=== PATIENT | female | born 2000 | race Caucasian/White ===

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

== ENCOUNTER 2021-02-14 13:35 | Emergency (ER) | payer OTHER, SELFPAY ==
--- NOTE | ~2021-02-14 | US_ITS ---
EXAMINATION: US OB <=14 wk fetus w TV DATE: 02/14/2021 16:43 INDICATION: Pelvic pain. Vaginal bleeding in . TECHNIQUE: Real-time transabdominal and transvaginal pelvic ultrasound was performed. COMPARISON: None. FINDINGS: TRANSABDOMINAL ULTRASOUND: The uterus measures 8.6 x 4.8 x 4.3 cm. TRANSVAGINAL ULTRASOUND: There is an intrauterine gestational sac. A yolk sac is identified. The fet al crown rump length measures 5 mm, which correlates with an estimated gestational age of 6 weeks and 2 day(s) (+/-) 4 day(s). heart motion is identified measuring 122 beats per minute (bpm) by M- mode Doppler. There is a small subchorionic hematoma measuring 1.3 x 1.6 x 0.7 cm. The right ovary me asures 3.0 x 1.3 x 1.6 cm. The left ovary measures 3.7 x 2.7 x 2.1 cm. There is normal vascular flow in the ovaries. There is no free fluid in the pelvis. IMPRESSION: 1. Single living intrauterine gestation with estimated date of delivery of 10/08/2021. 2. Small subchorionic hematoma. Reviewed, dictated and finalized at location A. EWATER PROJECT MANAGER IMPRESSION: 1. Single living intrauterine gestation with estimated date of delivery of 09/11. 2. Small subchorionic hematoma.
[2021-02-14 13:37] VITALS: BP 112/56; PULSE 67; RESP 16; TEMP 36.3; O2SAT 100
[2021-02-14 14:20] LABS: Basophils Absolute Auto 0.1 K/mm3 (0.0-0.1); Basophils Percent Auto 0.7 % (0.2-1.2); Eosinophils Absolute Auto 0.1 K/mm3 (0-0.3); Eosinophils Percent Auto 0.7 % (0-4.4); Hematocrit 38.7 % (37.0-47.0); Hemoglobin 13.4 g/dL (12.0-15.0); Immature Granulocyte Absolute 0.03 K/mm3 (0.00-0.031); Immature Granulocyte Percent A 0.3 % (0-0.5); Lymphocytes Absolute Auto 2.19 K/mm3 (0.9-3.2); Lymphocytes Percent Auto 21.4 % (18.3-44.2); Mean Corpuscular HGB Conc 34.6 g/dl (32-36); Mean Corpuscular Hemoglobin 30.8 pg (26-34); Mean Platelet Volume 9.4 fl (7.4-10.4); Monocytes Absolute Auto 0.5 K/mm3 (0.1-0.6); Monocytes Percent Auto 4.9 % (2.6-8.5); Neutrophils Absolute Auto 7.4 K/mm3 (1.3-6.7); Platelet Count Result 287 k/mm3 (150-375); Red Blood Count 4.35 M/mm3 (4.2-5.4); Red Cell Distribution Width 11.9 % (11.5-14.5); White Blood Count 10.3 K/mm3 (4.5-10.0)
[2021-02-14 14:30] LABS: Add Urine Microscopic? YES; Amorphous Sediment Urine Few; Appearance Urine Cloudy (Clear); Bilirubin Urine Negative (Negative); Blood Urine 1+ (Negative); Budding Yeast Urine Present /hpf; Color Urine Amber (Yellow); Glucose Urine UA Negative (Negative); Ketones Urine Negative (Negative); Leukocyte Esterase Ur Negative LEU/UL (Negative); Mucus Urine Few /lpf; Nitrate Urine Negative (Negative); Protein Urine 1+ mg/dL (Negative); Specific Grav Ur 1.017 (1.001-1.035); Squamous Epithelial Cell Urine Many /hpf (Few)
[2021-02-14 14:34] LABS: Alanine Aminotransferase 13 U/L (4-35); Albumin Level 4.4 g/dL (3.5-5.1); Alkaline Phosphatase 59 U/L (38-126); Anion Gap 6 mmol/L (8-16); Aspartate Amino Transferase 23 U/L (14-36); Blood Urea Nitrogen 8 mg/dL (7-17); Calcium 9.1 mg/dL (8.4-10.2); Carbon Dioxide 27 mmol/L (22-30); Chloride 102 mmol/L (98-107); Estimated CRCL calculation 106 ml/min; Estimated Glomerular Filt Rate > 60; Glucose 98 mg/dL (65-110); Lipase 51 U/L (23-300); Potassium 4.2 mmol/L (3.4-5.0); Sodium 135 mmol/L (137-145)
--- NOTE | 2021-02-14 15:06 | ED.GENADULT ---
HPI - General Adult General Chief complaint: Nausea/Vomiting/Diarrhea Stated complaint: poss kidney infection Time Seen by Provider: 02/14/21 14:16 Source: patient Mode of arrival: ambulatory Limitations: no limitations History of Present Illness HPI narrative: Patient presents for evaluation of abdominal pain and vaginal bleeding. She indicates she is experienced vaginal bleeding for approximately 1.5 weeks. She previously had an IUD, but that was removed about two months ago at [facility] [place]. She states she had a normal period about one month ago. At the time she started bleeding 1.5 weeks ago, she was going through four tampons per day. She is now going through about three panty liners per day. She states six days ago she began experiencing urinary frequency, nausea, dry heaves and abdominal cramping. Five days ago she developed fever and chills. She went to [facility] four days ago and was diagnosed with urinary tract infection. She was given scripts for Macrobid and Pyridium. She has been attempting to take these medications but states that she cannot keep anything down. On arrival here in the ER today, prior to time of my evaluation, she had a bedside test which was positive. She is unsure whether a test was performed at [facility] urgent [facility]. No previous pregnancies. She has two male sex partners and does not believe either have symptoms consistent with STI. Related Data Allergies Allergy/AdvReac Type Severity Reaction Status Date / Time No Known Allergies Allergy Verified 04/16/20 15:42 Review of Systems Review of Systems: CONSTITUTIONAL: Reports fever and chills EYES: Denies visual changes, redness, or discharge. ENT: Denies rhinorrhea, congestion, sore throat, or otalgia. CARDIOVASCULAR: Denies chest pain, palpitations, or edema. RESPIRATORY: Denies cough or dyspnea. GASTROINTESTINAL: Reports abdominal pain, nausea, dry heaves and one episode of vomiting GENITOURINARY: Reports urinary frequency. Reports vaginal bleeding SKIN: Denies rash or itching. MUSCULOSKELETAL: Denies back pain, joint pain, or myalgia. NEUROLOGIC: Denies headache, numbness, dizziness, or weakness. PSYCHIATRIC: Denies anxiety or depression. [facility] Past Medical History Medical History Tympanic membrane disorder Surgical History Surgical History No pertinent past surgical history No significant past surgical history Family History Family History Mother No significant family history Social History Social History Smoking status: Former smoker Tobacco type: e-cigarettes/vaping Alcohol intake: former Substance use: current Substance use type: marijuana Living arrangements: with family Gender identity (if verbalized by the patient): Female Sexual Orientation (if Verbalized by the Patient): Straight or Heterosexual Spiritual care concerns: No Exam Narrative: GENERAL: Well-appearing, well-nourished, and in no acute distress. HEAD: Normocephalic, atraumatic. EYES: PERRLA and EOMI. ENT: Nares clear, no rhinorrhea or epistaxis. Mucous membranes moist. Oropharynx without tonsillar hypertrophy exudate or other lesions. Bilateral TMs pearly duran nonbulging NECK: Supple. No adenopathy or masses. No carotid bruits or JVD CHEST: Clear to auscultation. No respiratory distress. No wheezes rales or rhonchi HEART: Regular rate and rhythm. No murmur heard. Normal peripheral pulses. ABDOMEN: Soft, tenderness in suprapubic region without rebound or guarding. Abdomen is nondistended, normal active bowel sounds. GENITAL: No external genital lesions. No adnexal tenderness. There is small amount of mucus consistent pink drainage in vaginal vault. Cervical os deneen
[2021-02-14] MEDS: ONDANSETRON INJ 4 MG/2 ML VIAL IV PUSH (15:19)
[2021-02-14] MEDS: LACTATED RINGERS 1,000 ML 999 ML IV CONT (15:20)
== END 2021-02-14 18:07 | disposition home or self-care (01) ==
PROVIDERS: Family Medicine; Emergency Provider Nurse Practitioner; PCP Pediatrics
DX: O20.0 Threatened abortion (principal); Z3A.01 Less than 8 weeks gestation of pregnancy; O21.0 Mild hyperemesis gravidarum
CPT/HCPCS: 36415; 76801; 76817; 80053; 81001; 81025; 83690; 84702; 85025; 86900; 86901; 87070; 87077; 87491; 87591; 87808; 96361; 96374; 99284; J2405; J7120

== ENCOUNTER 2022-07-25 16:23 | Outpatient (CLI) | payer OTHER, SELFPAY ==
[2022-07-25 16:34] LABS: Basophils Absolute Auto 0.1 K/mm3 (0.0-0.1); Basophils Percent Auto 0.9 % (0.2-1.2); Eosinophils Absolute Auto 0.1 K/mm3 (0-0.3); Eosinophils Percent Auto 1.8 % (0-4.4); Hematocrit 36.1 % (37.0-47.0); Hemoglobin 12.4 g/dL (12.0-15.0); Lymphocytes Absolute Auto 2.25 K/mm3 (0.9-3.2); Lymphocytes Percent Auto 34.4 % (18.3-44.2); Mean Corpuscular HGB Conc 34.3 g/dl (32-36); Mean Corpuscular Hemoglobin 30.5 pg (26-34); Mean Corpuscular Volume 88.7 fl (80-100); Mean Platelet Volume 9.2 fl (7.4-10.4); Monocytes Absolute Auto 0.4 K/mm3 (0.1-0.6); Neutrophils Absolute Auto 3.7 K/mm3 (1.3-6.7); Neutrophils Percent Auto 56.9 % (45.5-73.1); Platelet Count Result 235 k/mm3 (150-375); Red Blood Count 4.07 M/mm3 (4.2-5.4); Red Cell Distribution Width 12.4 % (11.5-14.5); White Blood Count 6.6 K/mm3 (4.5-10.0)
[2022-07-25 16:45] LABS: Alanine Aminotransferase 12 U/L (6-35); Albumin Level 4.5 g/dL (3.5-5.1); Alkaline Phosphatase 48 U/L (38-126); Anion Gap 6 mmol/L (8-16); Aspartate Amino Transferase 21 U/L (14-36); Bilirubin,Total 0.7 mg/dL (0.2-1.3); Blood Urea Nitrogen 8 mg/dL (7-17); Calcium 8.6 mg/dL (8.4-10.2); Carbon Dioxide 26 mmol/L (22-30); Chloride 106 mmol/L (98-107); Estimated Glomerular Filt Rate > 60; Glucose 97 mg/dL (65-110); Potassium 4.1 mmol/L (3.4-5.0); Sodium 138 mmol/L (137-145)
== END 2022-07-25 16:24 | disposition home or self-care (01) ==
LOC: ANHLAB 16:24
PROVIDERS: PCP Family Medicine; Visit Provider Physician Assistant
DX: N92.1 Excessive and frequent menstruation with irregular cycle (principal)
CPT/HCPCS: 36415; 80053; 85025

== ENCOUNTER 2023-02-11 17:20 | Emergency (ER) | payer OTHER, SELFPAY ==
[2023-02-11 17:36] VITALS: BP 107/74; PULSE 82; RESP 16; TEMP 37; O2SAT 100
--- NOTE | 2023-02-11 17:41 | ED.FEMALEGU ---
HPI - Female Genitourinary General Chief complaint: Urogenital-Female Stated complaint: Eczema;Std test Time Seen by Provider: 02/11/23 17:41 Source: patient, RN notes reviewed and old records reviewed Mode of arrival: ambulatory Limitations: no limitations History of Present Illness HPI Narrative: 23 year old female presents to [facility] care with complaints of irritated rash to her bilateral axilla for 1 week duration. Patient reports that she quit using deodorant and started putting lotion to her axilla with no improvement.Patient denies any new soaps, laundry products, deodorants, no contact with anyone with known rashes. Patient also states that she has had abnormal bleeding for 2 weeks reports that menses are irregular and is not on any control pills because they mess with her mental health. Patient reports that she did home test that was negative. Patient denies any episodes of vaginal discharge and states that she wants STD testing done also today. MD elicited complaint: UTI Onset (ago): week(s) (2 weeks with menorrhagia) Vaginal discharge: none Vaginal bleeding: moderate and bright red Sexual activity: Yes Patient : No Related Data Allergies Allergy/AdvReac Type Severity Reaction Status Date / Time No Known Allergies Allergy Verified 01/27/23 15:54 Review of Systems Review of Systems: CONSTITUTIONAL: Denies fever, chills, or sweats. CARDIOVASCULAR: Denies chest pain, palpitations, or edema. RESPIRATORY: Denies cough or dyspnea. GASTROINTESTINAL: Denies abdominal pain, nausea, vomiting, or diarrhea. GENITOURINARY: Reports no dysuria, frequency, urgency. Denies flank pain, has had 2 weeks of menorrhagia,wants STD testing denies any STD symptoms. SKIN: Reports rash with irritation to skin bilateral axilla for one week duration. MUSCULOSKELETAL: Denies back pain or myalgia. Denies CVA tenderness NEUROLOGIC: Denies headache All systems reviewed & are unremarkable except as noted in HPI and below PMFSH Past Medical History Medical History (Updated 02/13/23 @ 12:46 by Anna Jauregui NP) Constipation by delayed colonic transit Contraception management Encounter for wellness examination Tympanic membrane disorder Surgical History Surgical History No pertinent past surgical history No significant past surgical history Family History Family History Mother No significant family history Thyroid disease Grandparent Breast cancer, Onset Age: 60 Social History Social History (Updated 01/27/23 @ 15:56 by Michelle Lawler) Social History: Single Smoking status: Smoker, status unknown (vaping) Tobacco type: e-cigarettes/vaping Additional smoking assessment comments: Pt has been vaping for 4 years. Alcohol intake: former Substance use: current Substance use type: marijuana Lack of Transportation: No Lack of Food: Never True Current Housing: I Have Housing Concerned About Future Housing: No Difficulty Paying Gas/Electric Bills: No Difficulty Paying for Meds: No Currently Unemployed: No Education: High School Diploma/GED Difficulty w/ Childcare or Family Care: No Living arrangements: with family Occupation/Education: occupation Gender identity (if verbalized by the patient): Female Sexual Orientation (if Verbalized by the Patient): Straight or Heterosexual Spiritual care concerns: No Comments AT TIME OF SIGNATURE, AGREE WITH NURSING PAST MEDICAL, SURGICAL, SOCIAL AND FAMILY HISTORY. THERE IS NO RELEVANT FAMILY HISTORY PERTINENT TO THE PRESENTING COMPLAINT Exam Narrative: GENERAL: Well-appearing, well-nourished, and in no acute distress. HEAD: Normocephalic, atraumatic. NECK: Supple.no lymphadenopathy CHEST: Clear to auscultation. No respiratory distress.SAO2 100% on room air HEART: Regular rate and rhythm. No murmur heard. Normal rupa
[2023-02-11 20:22] LABS: Trichomonas Vag PCR NOT DETECTED (NOT DETECTE)
[2023-02-11 20:48] LABS: Chlamydia trachomatis NOT DETECTED (NOT DETECTE); Neisseria gonorrhoeae PCR NOT DETECTED (NOT DETECTE)
== END 2023-02-11 18:15 | disposition home or self-care (01) ==
PROVIDERS: Emergency Provider Registered Nurse; PCP Family Medicine
DX: Z11.3 Encounter for screening for infections with a predominantly sexual mode of transmission (principal); L30.9 Dermatitis, unspecified; N92.1 Excessive and frequent menstruation with irregular cycle; F17.290 Nicotine dependence, other tobacco product, uncomplicated; F12.90 Cannabis use, unspecified, uncomplicated
CPT/HCPCS: 81003; 81025; 87491; 87591; 87661; 99213; G0463

== ENCOUNTER 2023-02-20 10:53 | Emergency (ER) | payer OTHER, SELFPAY ==
[2023-02-20 10:56] VITALS: BP 99/53; PULSE 72; RESP 18; TEMP 36.5; O2SAT 100
--- NOTE | 2023-02-20 11:43 | ED.WOUNDLAC ---
HPI - Wound/Laceration General Chief Complaint: Wound/Laceration Stated Complaint: hand lac Time Seen by Provider: 02/20/23 11:03 Source: patient Mode of arrival: ambulatory Limitations: no limitations History of Present Illness HPI narrative: This is a 23 year old female that presents to the ER for laceration to the left hand sustained just prior to arrival. Reports she accidentally cut herself with a paper box maker. Reports bleeding and pain to the area. Reports after this happened she started to feel very sweaty and nauseous. She put her head down and passed out. Reports history of similar events when attempting to give blood. Denies chest pain, shortness of breath or palpitations. Related Data Allergies Allergy/AdvReac Type Severity Reaction Status Date / Time No Known Allergies Allergy Verified 02/20/23 10:57 Review of Systems Review of Systems: CONSTITUTIONAL: Denies fever CARDIOVASCULAR: Denies chest pain, palpitations RESPIRATORY: Denies dyspnea. SKIN: Reports laceration GASTROINTESTINAL: Reports nausea All systems reviewed & are unremarkable except as noted in HPI and below PMFSH Past Medical History Medical History (Updated 02/20/23 @ 11:57 by Bebe Echavarria PA-C) Constipation by delayed colonic transit Contraception management Encounter for wellness examination Tympanic membrane disorder Surgical History Surgical History No pertinent past surgical history No significant past surgical history Family History Family History Mother No significant family history Thyroid disease Grandparent Breast cancer, Onset Age: 60 Social History Social History (Updated 01/27/23 @ 15:56 by Michelle Lawler) Social History: Single Smoking status: Smoker, status unknown (vaping) Tobacco type: e-cigarettes/vaping Additional smoking assessment comments: Pt has been vaping for 4 years. Alcohol intake: former Substance use: current Substance use type: marijuana Lack of Transportation: No Lack of Food: Never True Current Housing: I Have Housing Concerned About Future Housing: No Difficulty Paying Gas/Electric Bills: No Difficulty Paying for Meds: No Currently Unemployed: No Education: High School Diploma/GED Difficulty w/ Childcare or Family Care: No Living arrangements: with family Occupation/Education: occupation Gender identity (if verbalized by the patient): Female Sexual Orientation (if Verbalized by the Patient): Straight or Heterosexual Spiritual care concerns: No Exam Narrative: GENERAL: Well-appearing, well-nourished, and in no acute distress. HEAD: Normocephalic, atraumatic. EYES: EOMI. CHEST: Clear to auscultation. No respiratory distress. No wheezes rales or rhonchi HEART: Regular rate and rhythm. No murmur heard. Normal peripheral pulses. EXTREMITIES: Normal range of motion. No edema. 1cm linear laceration into subcutaneous tissue to the left hand between the 1st and 2nd fingers SKIN: Warm, dry, no rash. NEURO: No focal deficits. Alert and oriented x3. PSYCH: Normal mood and affect Course Course Emergency Course: Patient and family educated on wound care and recommendation for workup for her syncopal episode. They refuse at this time Vital Signs Vital signs: Vital Signs Temperature 97.7 F 02/20/23 10:56 Pulse Rate 72 02/20/23 10:56 Respiratory Rate 18 02/20/23 10:56 Blood Pressure 99/53 L 02/20/23 10:56 Pulse Oximetry 100 02/20/23 10:56 Temperature 97.7 F 02/20/23 10:56 Pulse Rate 70 02/20/23 11:54 Respiratory Rate 18 02/20/23 10:56 Blood Pressure 95/57 L 02/20/23 11:54 Pulse Oximetry 100 02/20/23 10:56 Procedures Laceration Laceration 1: Date: 02/20/23 Time: 11:49 Site: hand Side (If applicable): left Size (cm): 1 Description: linear Pre-repa
[2023-02-20] MEDS: TETANUS,DIPHTHERIA,AC PERTUSSIS ADULT (0.5 ML) BOOSTRIX IM (11:47)
[2023-02-20 11:52] VITALS: BP 96/57; PULSE 60
[2023-02-20 11:53] VITALS: BP 95/59; PULSE 60
[2023-02-20 11:54] VITALS: BP 95/57; PULSE 70
--- NOTE | 2023-02-20 11:57 | PC.NURSE ---
pt has a syncopal workup ordered because when they got a laceration they fainted from seeing blood. pt states they do not want to stay for the full work up and just want to treat the laceration and do orthostatic bp's. educated pt and mom on use of the work up and they decided to not do it.
== END 2023-02-20 12:09 | disposition home or self-care (01) ==
PROVIDERS: Emergency Provider Physician Assistant; PCP Family Medicine
DX: S61.412A Laceration without foreign body of left hand, initial encounter (principal); R55 Syncope and collapse; F17.290 Nicotine dependence, other tobacco product, uncomplicated; Z23 Encounter for immunization; W27.8XXA Contact with other nonpowered hand tool, initial encounter
CPT/HCPCS: 90471; 90715; 99282

== ENCOUNTER 2023-04-19 11:38 | Emergency (ER) | payer OTHER, SELFPAY ==
[2023-04-19 11:44] VITALS: BP 97/63; PULSE 81; RESP 16; TEMP 36.9; O2SAT 100
--- NOTE | 2023-04-19 12:17 | ED.EXTPRO ---
HPI - Extremity Problem General Chief complaint: Extremity Problem,Nontraumatic Stated complaint: L FOOT PAIN Time Seen by Provider: 04/19/23 12:15 Source: patient and RN notes reviewed Mode of arrival: ambulatory Limitations: no limitations History of Present Illness HPI Narrative: 23-year-old female presents concern for left foot pain for 3 weeks. She reports no injury or trauma. She reports symptoms have worsened slightly over the last week. She reports minimal pain at rest, worsening pain with weight-bearing flexing the foot. She denies intervention. MD Complaint: extremity pain Related Data Home Medications Medication Instructions Recorded Confirmed No Home Medications 04/19/23 04/19/23 Allergies Allergy/AdvReac Type Severity Reaction Status Date / Time No Known Allergies Allergy Verified 04/19/23 12:03 Review of Systems Review of Systems: CONSTITUTIONAL: Denies malaise, chills, sweats, or fever. CARDIOVASCULAR: Denies chest pain, palpitations, or edema. RESPIRATORY: Denies cough or dyspnea. SKIN: Denies rash or itching, bruising, redness, swelling. MUSCULOSKELETAL: Reports left foot pain NEUROLOGIC: Denies numbness, weakness All systems reviewed & are unremarkable except as noted in HPI and below PMFSH Past Medical History Medical History (Updated 04/19/23 @ 12:33 by Saida Card NP) Constipation by delayed colonic transit Contraception management Encounter for wellness examination Tympanic membrane disorder Surgical History Surgical History No pertinent past surgical history No significant past surgical history Family History Family History Mother No significant family history Thyroid disease Grandparent Breast cancer, Onset Age: 60 Social History Social History (Updated 01/27/23 @ 15:56 by Michelle Lawler) Social History: Single Smoking status: Smoker, status unknown (vaping) Tobacco type: e-cigarettes/vaping Additional smoking assessment comments: Pt has been vaping for 4 years. Alcohol intake: former Substance use: current Substance use type: marijuana Lack of Transportation: No Lack of Food: Never True Current Housing: I Have Housing Concerned About Future Housing: No Difficulty Paying Gas/Electric Bills: No Difficulty Paying for Meds: No Currently Unemployed: No Education: High School Diploma/GED Difficulty w/ Childcare or Family Care: No Living arrangements: with family Occupation/Education: occupation Gender identity (if verbalized by the patient): Female Sexual Orientation (if Verbalized by the Patient): Straight or Heterosexual Spiritual care concerns: No Comments At time of signature, agree with nursing past medical, surgical, social and family history. There is no relevant family history pertinent to the presenting complaint Exam Narrative: GENERAL: Well-appearing, well-nourished, and in no acute distress. HEAD: Normocephalic, atraumatic. EYES: PERRLA, conjunctivae clear NECK: Supple. CHEST: Speaks in full sentences. No respiratory distress. HEART: Regular rate and rhythm. Normal and equal peripheral pulses. EXTREMITIES: Left ankle, foot, digits have grossly normal strength and sensation, normal range of motion. No edema or ecchymosis. 5/5 strength with ankle in digit flexion and extension. Normal sensation with sensitivity to light touch and pain. No point tenderness, dorsal proximal tenderness. No open wounds, no skin tenting, no devitalized tissue or atrophy, no trophic changes, no obvious deformity, alignment normal, nearby joints and structures intact. Distal pulses palpable and equal bilaterally, skin warm, dry, pink. Capillary refill less than 3 seconds. SKIN: Warm, dry, no rash. NEURO: Alert and oriented x3. PSYCH: Normal mood and affect Course Course Emergency Course: Patient is aware of diag
== END 2023-04-19 12:38 | disposition home or self-care (01) ==
PROVIDERS: Emergency Provider Nurse Practitioner; PCP Family Medicine
DX: M77.9 Enthesopathy, unspecified (principal); F17.290 Nicotine dependence, other tobacco product, uncomplicated
CPT/HCPCS: 99212; G0463

== ENCOUNTER 2024-07-20 12:54 | Observation (INO) | payer OTHER, SELFPAY ==
[2024-07-20] VITALS (9 sets, daily range): BP systolic 99–118; BP diastolic 58–73; PULSE 66–93; RESP 10–20; TEMP 36.3–36.7; O2SAT 99–100; BMI 22.1
--- NOTE | ~2024-07-20 | US_ITS ---
US pelvic complete Ordering provider: Orin England PA-C History: . 05/25, vaginal bleeding, retained products . Comparison: None. Technique: Transabdominal ultrasound of the pelvis (Doppler ultrasound interrogation techniques used as needed for this exam.) FINDINGS: CERVIX: Normal. UTERUS: Measures 9x 4x 4.6 cm in length which is within normal limits and is anteverted. No myometri al masses. ENDOMETRIUM: Normal in thickness measuring 14.2 mm. Heterogenous endometrium is noted with some vascu larity. No endometrial masses, cysts or fluid. CUL DE SAC: No free fluid. RIGHT OVARY: Normal in size measuring 3.1x 2.1x 2 cm. Normal echotexture. Doppler vascular flow prese nt. LEFT OVARY: Normal in size measuring 2.7x 3.4x 1.9 cm. Normal echotexture. Doppler vascular flow pres ent. ADNEXA: Normal. No mass. IMPRESSION: Thickened heterogenous endometrium with minimal vascularity which is most likely indicate retained pr oducts. Follow-up and clinical correlation advised.Otherwise, normal pelvic ultrasound. Reviewed, dictated and finalized at location A. IMPRESSION: Thickened heterogenous endometrium with minimal vascularity which is most likel y indicate retained products. Follow-up and clinical correlation advised.Otherw ise, normal pelvic ultrasound.
--- OUTSIDE RECORDS SUMMARY | 2024-07-20 12:56 | XMS_ITS | Data Portability ---
Author Organization [facility] [place] Address [address] [place] [address] [place] [address] Assessment No assessment recorded. Plan of Treatment Reminders Order Date Submit Date Provider Last Modified By Organization Details Last Modified Time Details Appointments None recorded. Lab culture, urine 2024 025 [facility] (Lab), [address], [place], [address], 5 03:02:06 urinalysis, dipstick 2024 025 [email or web address] [place], [address], [address], [place], [address], 5 18:07:25 unlisted lab - [facility], LAVON 2024 025 [facility] (Lab), [address], [place], [address], 5 03:02:05 dhea-sulfat e, serum 2023 024 [facility] (Lab), [address] [place], [address], 4 21:50:56 hormone panel, serum or plasma 2023 024 [facility] (Lab), [address] [place], [address], 4 21:50:58 progesteron e, serum 2023 [facility] (Lab), [address] [place], [address], 4 21:50:57 prolactin, serum 2023 [facility] (Lab), [address], [place], [address], 4 21:50:57 shbg (sex hormone-bin ding globulin), serum 2023 [facility] (Lab), [address], [place], [address], 4 21:50:58 TSH, serum or plasma 2023 [facility] (Lab), [address], [place], [address], 4 21:50:57 testosteron e free/testos terone total, ratio, serum 2023 [facility] (Lab), [address], [place], [address], 4 21:50:58 HbA1c (hemoglobin A1c), blood 2023 [facility] (Lab), [address], [place], [address], 4 21:50:58 Referral None recorded. Procedures None recorded. Surgeries None recorded. Imaging [email or web address] [address], [address], [place], [address], 14:27:27 US, transvagina l 2023 [email or web address] [address], [address], [place], [address], 4 14:27:27 Medication Orders estradiol 2 mg tablet 2023 025 [id number], [address] , [place], [place], [id number], 17:56:10 Patient TargetsNo targets recorded. Patient InstructionsNo instructions recorded. Reason for Referral None Reported. Results Created Date Observation Date Name Description Value Unit Range Abnormal Flag Note LastModifiedBy Organization Detail LastModifiedTime 02/02/20 24 02/02/2024 DHEA SULFA TE DHEA-sulfate 173 ug/dL Femal e Range s Age(y ) Range (ug/d L) 10-15 34-28 0 15-20 65-36 8 20-25 148-4 07 25-35 99-34 0 35-45 61-33 7 45-55 35-25 6 55-65 19-20 5 65-75 9-246 > 75 12-15 4 Not Available [facility] (Lab) [address] [facility], [place], [address], 02/07/2024 21:50:56 02/02/20 24 02/02/2024 TSH, REFLE X FREE T4 TSH 0.97 uIU/m L 0.30-5 .33 Not Available [facility] (Lab) [address] , [place], [address], 02/07/2024 21:50:57 02/02/20 24 02/02/2024 PROLA CTIN prolactin, total 14.20 NG/mL 4.79-2 3.30 This assay was perfo rmed using [employer] ratio n reage nts and test kits. Value s obtai aime with other assay metho ds or kits canno t be used inter barreto eably . Not Available [facility] (Lab) [address] , [place], [address], 02/07/2024 21:50:57 02/02/20 24 02/02/2024 PROGE STERO NE progesterone 12.80 NG/mL This assay was perfo rmed using [employer] reage nts and test kits. Value s obtai aime with other assay metho ds or kits canno t be used inter [facility] . Femal e Proge stero ne Range s: Folli cular phase 0.06- 0.89 ng/mL Ovula tion phase 0.12- 12.00 ng/mL Lutea l phase 1.83- 23.90 ng/mL Postm enopa usal <0.05 -0.13 ng/mL Healt hy Pregn ant Women 1st Trime ster 11.0- 44.30 2nd Trime ster 25.40 -83.3 0 3rd Trime ster 58.70 -214. 00 Not Available [facility] (Lab) [address] [place], [address], 02/07/2024 21:50:57 02/02/20 24 02/02/2024 FSH, LH, ESTRA DIOL estradiol 101.0 pg/mL This assay was perfo rmed using [employer] reage nts and test kits. Value s obtai aime with other assay metho ds or kits canno t be used inter [facility] . Femal e Estra diol Range s: Folli cular phase 12.4- 233 pg/mL Ovula tion phase 41.0- 398 pg/mL Lutea l phase 22.3- 341 pg/mL Postm enopa usal <5-13 8 pg/mL Healt hy Pregn ant Women 1st Trime ster 154-3 243 pg/mL 2nd Trime ster 1561- 64265 pg/mL 3rd Trime ster 8525- >3000 0 pg/mL Not Available [facility] (Lab) [address] [place], [address], 02/07/2024 21:50:58 02/02/20 24 02/02/2024 FSH, LH, ESTRA DIOL FSH 4.0 mIU/m L This assay was perfo rmed using [employer] n reage nts and test kits. Value s obtai aime with other assay metho ds or kits canno t be used inter [facility] . Femal es Folli cular : 3.5-1 2.5 mIU/m L Ovula tion: 4.7-2 1.5 mIU/m L Lutea l: 1.7-7 .7 mIU/m L Postm enopa use: 25.8- 134.8 mIU/m L Not Available [facility] (Lab) [address] [facility], [place], [address], 02/07/2024 21:50:58 02/02/20 24 02/02/2024 FSH, LH, ESTRA DIOL LH 5.9 mIU/m L This assay was perfo rmed using [employer] n reage nts and test kits. Value s obtai aime with other assay metho ds or kits canno t be used inter [facility] . Femal es Mid-F ollic ular: 2.4-1 2.6 mIU/m L Mid-C ycle: 14.0- 95.6 mIU/m L Mid-L uteal : 1.0-1 1.4 mIU/m L Postm enopa use: 7.7-5 8.5 mIU/m L Not Available [facility] (Lab) [address] [facility], [place], [address], 02/07/2024 21:50:58 02/02/20 24 02/02/2024 HUMAN SEX HORMO NE VIVEK NG GLOBU JOÃO sex hormone binding globulin 70.3 nmole s/L 18.2-1 35.5 Not Available [facility] (Lab) [address] [place], [address], 02/07/2024 21:50:58 02/02/20 24 02/02/2024 HEMOG LOBIN A1C hemoglobin A1C 5.1 % 0-5.6 The Ameri can Diabe artis Assoc iatio n recom mends that a prima ry goal of therkylah forbes be a HBA1C of < 7% and that physi ciakelly forbes reeva luate the treat ment regim en in patie nts with HBA1C value s consi stent ly > 8%. <5.7% Alethea l 5.7 - 6.4% Incre ased risk for diabe artis >=6.5 % Diagn ostic of diabe artis <7.0% Goal of thera py >8.0% Actangelica reynolds sted Not Available [facility] (Lab) [address] [facility], [place], [address], 02/07/2024 21:50:58 02/02/20 24 02/02/2024 TESTO STERO NE, FREE( DIALY SIS) AND TOTAL (LC/M S/MS) testosterone , total 17 NG/dL 2-45 For addit ional infor hermila seymour e refer to http: //[facility] haile helton.que stdia gnost ics.c om/fa q/ Total Testo stero neLCM SMSFA Q165 (This link is being provi ded for infor gary kinsey/ educa lupe l purpo ses only. ) This test was devel oped and its murali tical perfo rmanc e salvador cteri stics have been deter mined by [facility] [facility] [facility]inder [facility], [place]. It has not been clear ed or appro cherry by the U.S. Food and Drug Admin istra tion. This assay has been valid ated pursu ant to the CLIA regul ation s and is used for clini sam purpo ses. Not Available [facility] (Lab) [address] [facility], [place], [address], 02/07/2024 21:50:58 02/02/20 24 02/02/2024 TESTO STERO NE, FREE( DIALY SIS) AND TOTAL (LC/M S/MS) testosterone , free 1.6 pg/mL 0.1-6. 4 This test was devel oped and its murali tical perfo rmanc e salvador cteri stics have been deter mined by [employer] Rajinder ls [facility], [place]. It has not been clear ed or appro cherry by the U.S. Food and Drug Admin istra tion. This assay has been valid ated pursu ant to the CLIA regul ation s and is used for clini sam purpo ses. Perfo rming Organ izati on Infor gary n: Site ID: [id number] Name: Francoise ramires Addre ss: [id number] [place], [place] Direc tor: Trell Brown MD PhD Not Available [facility] (Lab) [address] [facility], [place], [address], 02/07/2024 21:50:58 04/02/19 25 04/02/2024 WOMEN 'S HEALT H SWAB PLUS, LAVON bacterial vaginosis (bv), tma Positi ve negati ve abnormal Not Available [facility] (Lab) [address] [place], [address], 04/04/2024 03:02:05 04/02/19 25 04/02/2024 WOMEN 'S HEALT H SWAB PLUS, LAVON isha species, tma Positi ve negati ve abnormal Not Available [facility] (Lab) [address] [place], [address], 04/04/2024 03:02:05 04/02/19 25 04/02/2024 WOMEN 'S HEALT H SWAB PLUS, LAVON isha glabrata, tma Negati ve negati ve Not Available [facility] (Lab) [address] [place], [address], 04/04/2024 03:02:05 04/02/19 25 04/02/2024 WOMEN 'S HEALT H SWAB PLUS, LAVON trichomonas vaginalis, tma Negati ve negati ve Not Available [facility] (Lab) [address] [place], [address], 04/04/2024 03:02:05 04/02/19 25 04/02/2024 WOMEN 'S HEALT H SWAB PLUS, LAVON chlamydia trachomatis, PCR Negati ve negati ve Not Available [facility] (Lab) [address] [place], [address], 04/04/2024 03:02:05 04/02/19 25 04/02/2024 WOMEN 'S HEALT H SWAB PLUS, LAVON neisseria gonorrhoeae, PCR Negati ve negati ve Bacte rial vagin osis detec ts the follo wing bacte christiana assoc iated with bacte rial vagin osis (BV): Lacto bacil quinn (L. gasse ri, L. crisp atus and L. jense black), Gardn erell a vagin shirin, and Atopo bium vagin ae. A singl e quali tativ e resul t is repor julio base on instr ument softw are to deter mine BV posit quyen or negat quyen statu s. The [facility] speci es group tests for C. albic ans, C. tropi calis , C. parap miguel ángel is, C. dubli niens is. Testi ng is perfo rmed using the Trans cript ion Media julio Ampli ficat ion metho d. Tests for Kely da glabr anselmo, Trich omona s vagin sihrin, Chlam ydia trach omati s, and Neiss eria gonor rhoea e are also inclu ded in this panel . Not Available [facility] (Lab) [address] [facility], [place], [address], 04/04/2024 03:02:05 04/02/19 25 04/02/2024 CULTU RE: URINE result report SEE RESULT S BELOW Test: Cultu re: Urine Speci men Sourc e: Urine - Clean Catch Speci men Type: Urine Speci men Date: 2024 1713 Resul t Date: 2024 0158 Resul t Statu s: Final resul t Abnor mal: No Resul ting Lab: [facility] [address] [facility] [address] Tel: CULTU RE ----- ----- ----- --- Cultu re resul t (>=3 organ isms prese nt) indic ates possi ble conta minat ion. Repea t cultu re if sympt oms indic ate. Not Available [facility] (Lab) [address], [place], [address], 04/04/2024 03:02:06 04/02/19 25 04/02/2024 urina lysis , dipst ick Leukocytes - Not Available [facility] l[address], [place], [address], 04/02/2024 18:04:55 04/02/19 25 04/02/2024 urina lysis , dipst ick Nitrite - Not Available [facility] [address], [place], [address], 04/02/2024 18:04:55 04/02/19 25 04/02/2024 urina lysis , dipst ick Urobilinogen - Not Available [facility] ayleen [address], [place], [address], 04/02/2024 18:04:55 04/02/19 25 04/02/2024 urina lysis , dipst ick Protein trace Not Available [place] [address], [place], [address], 04/02/2024 18:04:55 04/02/19 25 04/02/2024 urina lysis , dipst ick pH 5 Not Available [place] [address], [place], [address], 04/02/2024 18:04:55 04/02/19 25 04/02/2024 urina lysis , dipst ick Specific [place] 1.020 Not Available [facility] chance [address], [place], [address], 04/02/2024 18:04:55 04/02/19 25 04/02/2024 urina lysis , dipst ick Ketone - Not Available [place] [address], [place], [address], 04/02/2024 18:04:55 04/02/19 25 04/02/2024 urina lysis , dipst ick Bilirubin - Not Available [facility] [address], [place], [address], 04/02/2024 18:04:55 04/02/19 25 04/02/2024 urina lysis , dipst ick Glucose - Not Available [place] [address], [place], [address], 04/02/2024 18:04:55 04/02/19 25 04/02/2024 urina lysis , dipst ick Appearance cloudy Not Available [facility] [address], [place], [address], 04/02/2024 18:04:55 04/02/19 25 04/02/2024 urina lysis , dipst ick Color yellow Not Available [place] [address], [place], [address], 04/02/2024 18:04:55 12/15/19 24 12/15/2023 US, pelvi s No observ ation record ed. [email or web address] [place] [address], [place], [address], 12/15/2023 12:34:22 12/15/1912/15/2023 US, trans vagin al No observ ation record ed. [email or web address] [place] [address], [place], [address], 12/15/2023 12:34:31 12/15/1912/15/2023 US, pelvi s No observ ation record ed. [email or web address] [address], [place], [address], 12/17/2023 23:27:48 05/21/1905/20/2024 US, obste tric, 1st trime ster No observ ation record ed. [address], [place], [address], 06/04/2024 13:56:04 Result Notes None recorded. Problems Name Problem SNOMED Code Status Onset Date Resolution Date Notes Provider Name and Address Organization Details Recorded Time Syphilis test finding 855513653 Completed 201707/31/2020 Encntr screen for infection s w sexl mode of transmiss ;Recorded Elsewhere : No Locati on: [facility] So urce: EHR Chron ic: N Practic e ID: 0001 Bill able Time: 03:00:00 PM [facility] 11:43:33 Clinical finding Completed 201507/31/2020 Presence of (intraute rine) contracep tive device;Re corded Elsewhere : No Locati on: [facility] So urce: EHR Chron ic: N Practic e ID: 0001 Bill able Time: 02:30:00 PM [facility] 11:41:[address] Concept Completed 201507/31/2020 Encntr for routine child health exam w/o abnormal findings; Recorded Elsewhere : No Locati on: [facility] So urce: EHR Chron ic: N Practic e ID: 0001 Bill able Time: 03:00:00 PM [facility] 11:43:25 Evaluati on finding Completed 201707/31/2020 Hematuria , unspecifi ed;Record ed Elsewhere : No Locati on: [facility] So urce: EHR Chron ic: N Practic e ID: 0001 Bill able Time: 03:00:00 PM [facility] 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 1 11:43:27 Insertio n of intraute rine contrace ptive device Completed 201503/25/2021 Encounter for insertion of intrauter ine contracep tive device;Re corded Elsewhere : No Locati on: [facility] So urce: EHR Chron ic: N Practic e ID: 0001 Bill able Time: 02:30:00 PM Charlotte Santos [facility] 2 13:13:59 Infectio n screenin g Completed 201707/31/2020 Encounter for screening for oth infec/par astc diseases; Recorded Elsewhere : No Locati on: [facility] So urce: EHR Chron ic: N Practic e ID: 0001 Bill able Time: 03:00:00 PM Charlotte Santos [facility] 1 11:43:16 Vaginola bial hernia Completed 201707/31/2020 Other specified noninflam matory disorders of vagina;Re corded Elsewhere : No Locati on: [facility] So urce: EHR Chron ic: N Practic e ID: 0001 Bill able Time: 03:00:00 PM Charlotte Santos [facility] 1 11:43:34 Pregnanc y test negative [id number] Completed 201507/31/2020 Encounter for test, result negative; Recorded Elsewhere : No Locati on: [facility] So urce: EHR Chron ic: N Practic e ID: 0001 Bill able Time: 03:00:00 PM Charlotte Santos [facility] 1 11:43:21 Surveill ance of contrace ption Completed 201507/31/2020 Encounter for surveilla nce of contracep tives, unspecifi ed;Record ed Elsewhere : No Locati on: [facility] So urce: EHR Chron ic: N Practic e ID: 0001 Bill able Time: 03:00:00 PM [facility] 1 11:43:29 Chlamydi al vulvovag initis [id number] Completed 201803/25/2021 Chlamydia l vulvovagi nitis;Rec orded Elsewhere : No Locati on: [facility] So urce: EHR Chron ic: N Practic e ID: 0001 Bill able Time: 02:30:00 PM [facility] 2 13:13:54 Blood leukocyt e number above referenc e range [id number] Completed 201707/31/2020 Elevated white blood cell count, unspecifi ed;Record ed Elsewhere : No Locati on: [facility] So urce: EHR Chron ic: N Practic e ID: 0001 Bill able Time: 03:00:00 PM [facility] [address] 11:41:[address] Concept Completed 201807/31/2020 Encntr for general adult medical exam w/o abnormal findings; Recorded Elsewhere : No Locati on: [facility] So urce: EHR Chron ic: N Practic e ID: 0001 Bill able Time: 02:30:00 PM [facility] 1 11:43:23 Contrace ptive sheath status [id number] Completed 201507/31/2020 IUD follow up;Record ed Elsewhere : No Locati on: [facility] So urce: EHR Chron ic: N Practic e ID: 0001 Bill able Time: 04:00:00 PM [facility] 1 11:41:36 Problem Notes None recorded. Procedures Surgical History Date Name Laterality Status Provider Name and Address Organization Details Recorded Time 02/21/20 24 Date of Last Pap Smear completed Nakia Woodland [facility] 06/12/2023 16:09:03 03/14/19 23 extraction of wisdom tooth completed DEMIKylah Gold [facility] 05/20/2024 16:14:00 04/08/19 22 IUD Insertion cancelled Charlotte Santos [facility] 04/07/2021 19:29:28 10/14/19 21 IUD Removal completed Joselyn Singh, [facility]- [address], [place], [address], [place] [facility] 10/13/2020 13:39:21 Imaging Results Imaging Date Name Status LastModified by Organization Details LastModified Time 12/15/2023 US, pelvis completed [email or web address] [place] [address], [place], [address], 12/15/2023 12:34:22 12/15/2023 US, transvaginal [email or web address] [address], [place], [address], 12/15/2023 12:34:31 12/15/2023 US, pelvis completed [email or web address] [address], [place], [address], 12/17/2023 23:27:48 05/20/2024 US, obstetric, 1st trimester completed [address], [place], [address], 06/04/2024 13:56:04 Procedure Notes None recorded. Medical Equipment None Reported. Allergies No known drug allergies Medications Name Sig Start Date Stop Date Status Note LastModified by Organization Details LastModified Time Mirena 21 mcg/24 hr (up to 8 years) 52 mg intrauter ine device Take by intraute rine route. 03/25 completed Not Available Not Available Not Available fluconazo le 150 mg tablet TAKE 1 TABLET BY MOUTH 1 TIME 05/20 completed Not Available Not Available Not Available hydrocodo ne 5 mg-acetam inophen 325 mg tablet TAKE 1 TABLET BY MOUTH EVERY 6 HOURS NEEDED 07/31 completed Not Available Not Available Not Available fluconazo le 200 mg tablet TAKE 1 TABLET BY MOUTH EVERY OTHER DAY FOR 3 DOSES 03/25 completed Not Available Not Available Not Available metronida zole 0.75 % (37.5 mg/5 gram) vaginal gel INSERT 1 APPLICAT ORFUL VAGINALL Y EVERY DAY FOR 5 DAYS 05/20 completed Not Available Not Available Not Available ondansetr on HCl 4 mg tablet TAKE 1 TABLET BY MOUTH EVERY 4 TO 6 HOURS NEEDED 05/03 completed Not Available Not Available Not Available metronida zole 500 mg tablet TAKE 1 TABLET BY MOUTH EVERY 12 HOURS FOR 7 DAYS 05/20 completed Not Available Not Available Not Available oxycodone -acetamin ophen 5 mg-325 mg tablet TAKE 1/2 TO 1 TABLET BY MOUTH EVERY 4-6 HOURS NEEDED . MAX OF 4 TABLETS PER DAY 05/03 completed Not Available Not Available Not Available alprazola m 0.5 mg tablet 05/03 completed Not Available Not Available Not Available phenazopy ridine 100 mg tablet TAKE 2 TABLETS BY MOUTH THREE TIMES DAILY FOR 2 DAYS 03/25 completed Not Available Not Available Not Available Nortrel 0.5/35 (28) 0.5 mg-35 mcg tablet TAKE 1 TABLET BY MOUTH EVERY DAY 02/01 completed Not Available Not Available Not Available nystatin- triamcino lone 100,000 unit/g-0. 1 % topical cream APPLY A LIGHT AMOUNT TO THE AFFECTED AREA ON SKIN TWICE DAILY 05/03 completed Not Available Not Available Not Available misoprost ol 100 mcg tablet INSERT 1 TABLET VAGINALL Y THE NIGHT PRIOR TO IUD INSERTIO N FOR ONE DOSE 05/03 completed Not Available Not Available Not Available estradiol 2 mg tablet Take 1 tablet every day by oral route for 14 days. 04/02 completed Not Available Not Available Not Available hydroxyzi ne HCl 25 mg tablet TAKE 1 TABLET BY MOUTH THREE TIMES DAILY NEEDED FOR ANXIETY 05/03 completed Not Available Not Available Not Available oxycodone -acetamin ophen 7.5 mg-325 mg tablet 05/03 completed Not Available Not Available Not Available methylpre dnisolone 4 mg tablets in a dose pack FOLLOW PACKAGE DIRECTIO NS 05/03 completed Not Available Not Available Not Available ondansetr on 4 mg disintegr ating tablet DISSOLVE 1 TABLET ON THE TONGUE EVERY 6 HOURS NEEDED FOR NAUSEA OR VOMITING 07/31 completed Not Available Not Available Not Available amoxicill in 875 mg-potass ium clavulana te 125 mg tablet TAKE 1 TABLET BY MOUTH TWICE DAILY WITH FOOD 05/03 completed Not Available Not Available Not Available Bactrim DS 800 mg-160 mg tablet take 1 tablet by oral route every 12 hours 11/15 completed Prescrib ed Elsewher e: No Locat ion: [facility] liu [facility] odify By: ibrahima mcmahan DateTime : 07/27/19 18 03:00:00 PM Not Available Not Available Not Available dextroamp hetamine- amphetami ne ER 15 mg 24hr capsule,e xtend release 07/31 completed Not Available Not Available Not Available azithromy yajaira 500 mg tablet TAKE 2 TABLETS BY MOUTH ONCE FOR 1 DOSE 07/31 completed Not Available Not Available Not Available nitrofura ntoin monohydra te/macroc rystals 100 mg capsule TAKE 1 CAPSULE BY MOUTH EVERY 12 HOURS FOR 7 DAYS 03/25 completed Not Available Not Available Not Available chlorhexi dine gluconate 0.12 % mouthwash 05/03 completed Not Available Not Available Not Available Se- 19 Chewable 29 mg iron-1 mg tablet 05/03 completed Not Available Not Available Not Available Lo Loestrin Fe 1 mg-10 mcg (24)/10 mcg (2) tablet Take 1 tablet every day by oral route for 90 days. 03/25 completed Lot#: [id number], Exp DEC 31 Not Available Not Available Not Available Nuvessa 1.3 % (65 mg/5 gram) vaginal gel insert 1 applicat orful by vaginal route once at bedtime 12/19 completed Prescrib ed Elsewher e: No Locat ion: [facility] odify By: savita menjivar DateTime : 11/20/19 11:43:12 AM Not Available Not Available Not Available Blisovi Fe 04/01 (28) 1 mg-20 mcg (21)/75 mg (7) tablet TAKE 1 TABLET BY MOUTH DAILY 05/03 completed Not Available Not Available Not Available Nextstell is 3 mg-14.2 mg (28) tablet TAKE 1 TABLET BY MOUTH EVERY DAY 10/20 completed Not Available Not Available Not Available Vitals Date Recorded Body height Body mass index (BMI) Body weight Systolic blood pressure Diastolic blood pressure Provider Name and Address Organization Details Last Updated DateTime 02/02/2024 160.02 cm 21.8 kg/m2 04562.86 g 96 mm[Hg] 63 mm[Hg] Yajaira Barker [facility] 4 10:11:40 Date Recorded Body height Body mass index (BMI) Body weight Systolic blood pressure Diastolic blood pressure Provider Name and Address Organization Details Last Updated DateTime 04/02/2024 160.02 cm 20.9 kg/m2 45170.18 g 105 mm[Hg] 69 mm[Hg] KAREL FAIZAN [facility] 5 17:45:32 Date Recorded Body height Body mass index (BMI) Body weight Systolic blood pressure Diastolic blood pressure Provider Name and Address Organization Details Last Updated DateTime 05/20/2024 160.02 cm 20 kg/m2 65728.94 g 107 mm[Hg] 66 mm[Hg] DEMI Gold [facility] 5 16:12:48 Social History Question Answer Notes LastModified by Organizat ion Details LastModified Time Tobacco Smoking Status Never Smoker [facility] 07/31/2020 11:46:00 What Is Your Level Of Alcohol Consumption? Occasional [email or web address] Information not available 05/03/2023 Are You Blind Or Do You Have Difficulty Seeing? No Information n ot available 07/31/2020 What Is Your Level Of Caffeine Consumption? Moderate Information not available 07/31/2020 In The 14 Days Before Symptom Onset, Have You Had Close Contact With A Laboratory-confirm ed COVID-19 While That Case Was Ill? No Information n ot available 10/21/2023 In The 14 Days Before Symptom Onset, Have You Had Close Contact With A Person Who Is Under Investigation For COVID-19 While That Person Was Ill? No Information not available 10/21/2023 Have You Been To An Area Known To Be High Risk For COVID-19? No Information not available 10/21/2023 Are You Deaf Or Do You Have Serious Difficulty Hearing? No Information not available 07/31/2020 What Type Of Diet Are You Following? REGULAR Information n ot available 07/31/2020 Which Illicit Or Recreational Drugs Have You Used? Marijuana Information not available 07/31/2020 Do You Use Your Seat Belt Or Car Seat Routinely? Yes Information not available 07/31/2020 Are You Sexually Active? Yes Information not available 07/31/2020 Do You Have Smoke And Carbon Monoxide Detectors In Your Home? Yes Information not available 07/31/2020 Do You Feel Stressed (tense, Restless, Nervous, Or Anxious, Or Unable To Sleep At Night)? [id number] Information not available 07/31/2020 Do You Use Any Illicit Or Recreational Drugs? Yes Information not available 07/31/2020 Do You Use Sunscreen Routinely? Yes Information not available 07/31/2020 Have You Used IV Drugs? No Information not available 07/31/2020 Sex: Unknown Functional Status Question Answer Note LastModified by Organizat ion Details LastModified Time Do you have difficulty walking or climbing stairs? No Information not available 09/21/2021 Are you able to walk? YESWOREST Information not available 07/31/2020 Are you able to care for yourself? Yes Information not available 09/21/2021 Do you have difficulty dressing or bathing? No Information not available 09/21/2021 What is your exercise level? Occasional Information not available 07/31/2020 Mental Status None recorded. Family History Relationship Description Onset Age of this Age Resolved Age Notes LastModified by Organization Details LastModified Time Mother Disorder of thyroid gland Not available 2020 11:45:06 Maternal Grandmother Malignant tumor of breast Not available 2020 11:45:13 Paternal Aunt Diabetes mellitus Not available 2020 11:45:18 Medical History Condition Response Allergies (Food, seasonal, environmental ) N Other Y Drug/Latex Allergies/Reactions N Blood Transfusion N Breast Cancer N Dermatologic Disorders N Lung Disease N Defects or Inherited Disease N Breast Problem N Gestational Diabetes N Hematologic disorders N Anesthesia Complications N History of STI Y Deep Vein Thrombosis N Polycystic ovary syndrome N Anxiety Disorder N Autoimmune disease N Arthritis N Polyps N Infertility N Acid Reflux (GERD) N History of abnormal pap N Cancer N Varicosities N Stroke N Neurologic/Epilepsy N Endometriosis N High Cholesterol N Fibromyalgia N Headaches N Kidney Disease N Heart Problems N Thyroid Problems N Kidney or Bladder Problems N GI Problems N Eating Disorder N Anemia N Art (IVF or FET) N Psychiatric Illness N Ovarian Cancer N Diabetes N Pulmonary (TB, Asthma) N Hepatitis/Liver Disease N No Past Medical History N Eczema N Urinary Tract Infection N Abuse/Domestic Violence N Asthma N Trauma/Violence N Depression/ depression N Heart Disease N Pre-Eclampsia N Hypertension N Osteoporosis N Thrombophilias N Gynecological History Statement/Question Response Flow Heavy Date of LMP 03/17/2024 Was last menstrual period normal N STIs/STDs Y HPV Vaccine N Duration of Flow (days) 6 13 Current Control Method None Are cycles usually normal N Date of Last Colonoscopy Sexually Active? Y Menses Monthly Y Age of first menstrual cycle 14 Date of Last Pap Smear 05/03/2023 Sexual Problems? N LMP Approximate Obstetrics History GPAL:G 1 P 0 0 1 0 Type Value Induced 1 Living 0 Total 1 Past Encounters Encounter ID Performer Location Encounter Start Date Encounter Closed Date Diagnosis/Indication Diagnosis SNOMED-CT Code Diagnosis ICD10 Code Diagnosis Note [id number] Nain Cid MD [facility] [address] [address] 09/26/2019 12:05:48 09/26/2019 13:08:03 Bacterial vaginosis 491439826 N76.0 Venereal d isease screening 397354608 Z11.3 This patient is a 19-year-ol d female who presents for STI screening. She also reports foul-smell ing vaginal discharge that is periodic and not treated effectivel y with yeast treatment. We agreed to treat for BV. A swab was taken for evaluation of yeast trichomoni asis, BV, gonorrhea, chlamydia. We will follow-up on those results and contact the patient. She was treated with MetroGel. [id number] [facility] [address],[place] [address] 07/31/2020 11:23:26 07/31/2020 12:57:40 Contraception care management 607403970 Z30.9 Today, we agreed to trial of lo loestrin FE to see if this helps with brown spotting Will call if her Vag/std cx's are abn RTO x 3mos for med check We can decide at that time if she'd prefer to stay on pills or if wants IUD removed. UPT today is neg. Time spent in visit is a total of 15 mins with at least 50% of visit consisting of counseling and review of plan of care. Additional precaution gonzález measures were taken to minimize potential exposure to the Covid-19 virus during this patient s visit, including available hand block out machine operator upon arrive, temperatur e check and being asked a series of screening questions. All staff wore face coverings during this encounter, as well as provided additional cleaning and sanitizing of all surfaces, including countertop s, pens, chairs, door handles, light switches, etc, prior to and following the patient s visit. Cousnel OCP: Discussed all control options in great detail. Pt would like to start ocp. She is aware of the risks and benefits. She does not have any medical condition that is contraindi cated with the use of estrogen containing control. Pt will start her pills on the first monday following the start of her period. She is aware it is not effective for control the first month. She is also aware of the importance of taking at the same time every day. Encouraged use of condoms as the pill does not protect against STD's. Will return in 3 months for med check. Consent was read and signed. Pt verbalized understand ing. [id number] [facility] [address],[place] [address] 10/13/2020 13:12:51 10/13/2020 13:40:55 Removal of intrauterine device 48621484 Z30.432 She states the symptoms are of new onset. Patient is here due to the approachin g due date or the nature of her IUD and wishes to have it removed. We discussed the timing of the replacemen t with the next bleed or the need to abstain if she no longer has regular cycles. She expressed understand ing. It was explained that she may have bleeding or spotting after the removal of the device today as well. If cannot see the strings of this device we will need to get an US image to make that the device is still in place and not in an unobtainab le position. She expressed understand ing of all the above instructio ns. Not interested in other forms of BC at this time except condoms. Vaginitis 50291835 N76.0 Z11.3 Z11.8 Yeast infection found on examDifluc an sent with 1 RF. [id number] JOSUÉ Rol[facility] [address],[place] [address] 03/25/2021 14:40:25 03/25/2021 15:34:34 Contraception care management [id number] Z30.9 Today we discussed Nexplanon, Depo, & IUD's.She opts to have Mirena IUD placed.Has had IUD previously but had it removed due to AUB which she found frustratin g.We discussed that this could occur again & is considered wnl as long as it's not an extended period like flow up to 3-6mos post-place ment. She had an EAB February 2021 for a discovered end of December 2020.She has not had a regular period since this procedure occurred b/c she had a moderate flow period with extended random spotting for almost 2-3wks post-EAB procedure. She is SA with her boyfriend and last SA was last week. We discussed UPT today & UPT in next 2wks.If both are neg okay to have IUD placement as long as she abstains from further SA from today through upcoming IUD appt. We discussed the importance of abstaining and risks for SAB/EAB if IUD's are placed during a . She voices understand ing of this possibilit y. Discussed all control options and pt would like mirena IUD. I have discussed in detail all risks and benefits including risk of infection and perforatio n. As long as abstains, UPT today & in two weeks is neg then can have IUD placed at that appt. Aware of need to verify with insurance device coverage. Literature given. All questions answered to patient satisfacti on. Time spent in visit is a total of 30 mins with at least 50% of visit consisting of counseling and review of plan of care.Addit ional precaution gonzález measures were taken to minimize potential exposure to the Covid-19 virus during this patient s visit, including available hand block out machine operator upon arrive, temperatur e check and being asked a series of screening questions. All staff wore face coverings during this encounter, as well as provided additional cleaning and sanitizing of all surfaces, including countertop s, pens, chairs, door handles, light switches, etc, prior to and following the patient s visit. test negative [id number] Z32.02 Will return in 2wks for second UPT.Aware to abstain x 2wks as well. [id number] JOSUÉ Ward [facility] [address],[place] [address] 09/21/2021 16:55:51 09/22/2021 14:59:36 Contraception care management 910096512 Z30.9 All control options discussed in-depthSh e is interested in the Mirena IUD.Patien t to abstain from intercours e until next menses, will call on the first day of next period. Will insert on days 1-5 of her period. Discussed all control options and pt would like mirena IUD. I have discussed in detail all risks and benefits including risk of infection and perforatio n. As long as abstains, UPT today & in two weeks is neg then can have IUD placed at that appt. Aware of need to verify with insurance device coverage. Literature given. All questions answered to patient satisfacti on. Rx cytotec, insert into the vagina the night prior to IUD insertionT jannet OTC ibuprofen, 600mg, 1 hour prior to appointmen t Time spent in visit is a total of 30 mins with at least 50% of visit consisting of counseling and review of plan of care. [id number] JOSUÉ Ward [facility] [address],[place] [address] 05/03/2023 14:02:35 05/03/2023 14:40:43 Abnormal uterine bleeding [id number] 9100 N93.9 Primary pap collectedg c/ct/trich testing added to paplabs orderedUPT (-)pelvic u/s orderedwil l return for f/u to discuss results/ma nagment options Time spent in visit is a total of 30 mins with at least 50% of visit consisting of counseling and review of plan of care. Irregular periods 276108 07 N92.6 Screening for malignant neoplasm of cervix 249053769 Z12.4 [id number] Nain Cid MD [facility] [address],[place] [address] 05/11/2023 14:29:06 05/11/2023 15:54:18 Abnormal uterine bleeding [id number] 9100 N93.9 [id number] Tea Dudley JUDE [facility] [address],[place] [address] 06/13/2023 15:00:07 06/13/2023 15:47:57 Abnormal uterine bleeding [id number] 9100 N93.9 Contracept ion care management 862901215 Z30.9 gc/ct/tric h testing sentBC options reviewedop ts to start an OCP Discussed all control options in great detail. Pt would like to start ocp. She is aware of the risks and benefits. She does not have any medical condition that is contraindi cated with the use of estrogen containing control. Pt will start her pills on the first day following the start of her period. She is aware it is not effective for control the first month. She is also aware of the importance of taking at the same time every day. Encouraged use of condoms as the pill does not protect against STD's. Will return in 3 months for med check. Consent was read and signed. Pt verbalized understand ing.rx sentmed check in 3-4 months recommende d Venereal d isease screening [id number] Z11.3 [id number] Nain Cid MD [facility] [address],[place] [address] 10/21/2023 11:53:47 10/21/2023 13:01:41 Abnormal uterine bleeding 9579608830 9100 N93.9 This patient is a 23-year-ol d female who presents for abnormal uterine bleeding. She has irregularl y irregular bleeding. She has been taking low-dose contracept quyen pills for an extended period time and continues to have irregularl y irregular bleeding with intermenst rual bleeding and nothing that appears to be like a normal menstrual cycle. She has tried Depo-Prove ra shot. She has tried the Mirena IUD. She has tried other doses of the norethindr one combined oral contracept quyen pill. We discussed various options I spent over 30 minutes on their care. We agreed to a regular dose combined oral contracept quyen pill. She has been tolerating the norethindr one pill. We will start 35 mcg pill. She is given instructio ns. She was given cautions. She was given risks, benefits, and alternativ es. She would consider repeating exam. She will follow up in 2 months. She will have pelvic ultrasound around that time. [id number] Nain Cid MD [facility] [address],[facility] [place] [address] 12/15/2023 11:02:40 12/15/2023 11:41:19 Abnormal uterine bleeding [id number] 9100 N93.9 This patient is a 23-year-ol d female who presents for abnormal uterine bleeding. She has irregularl y irregular bleeding. She has been taking low-dose contracept quyen pills for an extended period time and continues to have irregularl y irregular bleeding with intermenst rual bleeding and nothing that appears to be like a normal menstrual cycle. She has tried Depo-Prove ra shot. She has tried the Mirena IUD. She has tried other doses of the norethindr one combined oral contracept quyen pill. We discussed various options I spent over 30 minutes on their care. We agreed to a regular dose combined oral contracept quyen pill. She has been tolerating the norethindr one pill. We will start 35 mcg pill. She is given instructio ns. She was given cautions. She was given risks, benefits, and alternativ es. She would consider repeating exam. She will follow up in 2 months. She will have pelvic ultrasound around that time. [id number] NIKHIL PRAJAPATI MD [facility] [address],[place] [address] 02/02/2024 10:03:02 02/02/2024 11:11:38 Abnormal uterine bleeding [id number] 9100 N93.9 - hx of irregular spotting and bleeding since starting IUD at age 16- she has tried multiple different methods of control since that time with no improvemen t- off of hormonal contracept ion since 10/2023- pelvic US demonstrat ed 3mm uterine lining even 2 months after stopping hormonal contracept ion- discussed repeating labs as well as 2 week trial of estrogen to stabilize uterine lining- will follow up on bleeding after labs result [id number] Nain Cid MD [facility] [address],[place] [address] 04/02/2024 17:30:43 04/02/2024 18:14:22 Venereal disease screening 934725937 Z11.3 Pt requested STI testing.Di scussed the various types of STDs, related symptoms and the potential consequenc es (including effects on fertility) of STD infections . Reviewed ways to limit exposure and prevention techniques . Vaginal discharge 872592 006 N89.8 Will r/o yeast/BV/t rich infection with vaginitis panel.No hematuria noted on urine dipstick. Irregular periods 939255 07 N92.6 Discussed that patient should f/u if irregular bleeding/s potting continues despite ruling out infectious cause.Triston mmended repeat pelvic u/s if this occurs. Discussed hormonal BC methods, pt may be interested in Twirla patch, but would like to continue to monitor her periods for now. [id number] NIKHIL PRAJAPATI MD [facility] [address],[place] [address] 05/20/2024 15:12:36 05/20/2024 15:55:08 [id number] NIKHIL PRAJAPATI MD [facility] [address],[place] [address] 05/20/2024 15:16:49 05/22/2024 00:07:44 test positive [id number] Z32.01 1. Exam today within normal limits.2. Ultrasound today confirms GA and viability. EDC . ACOG guidelines and plan of care for reviewed with patient. All questions answered.4 . Return to office at 12 weeks for new OB visit5. Will need new OB labs at next visit.6. Genetic screening: desires. Health Concerns Section Related Observation LastModified by Organization Detai ls LastModified Time None Recorded Concern Status LastModified by Organization Details LastModified Time None Recorded Advance Directives Directive None Recorded Payers Encounter Date Sequence Insurance Name Policy Number Policy Barr Covered Member ID Barr Member ID Guarantor Name 12/15/2023 1 [facility] [place] - [place] PRIOR TO 2024 (PPO) Jocelyne Zheng [id number] Hilda Caputo 02/02/2024 1 [facility] [place] - [place] PRIOR TO 2024 (PPO) Jocelyne Zheng [id number] Hilda Caputo 04/02/2024 1 [employer] [facility] [place] - DOS PRIOR TO 2024 (PPO) Jocelyne Zheng [id number] Hilda Caputo 05/20/2024 1 [employer] [place] - DOS PRIOR TO 2024 (PPO) Hilda Caputo [id number] Hilda Caputo 05/20/2024 1 [employer] [place] - DOS PRIOR TO 2024 (PPO) Hilda Caputo [id number] Hilda Caputo Notes Date Note Type Note Provider Name and Address Organization Details Recorded Time 02/02/2024 text/html Patient presents for evaluation of abnormal discharge and bleeding. She reports spotting/bleeding for most of the month, with usually one week without any bleeding. She was previously on multiple different controls with no improvement in her symptoms. She denies recent weight loss or gain, however did report a 35lb weight loss about 4 years ago. She denies excessive exercise. She has not been on control since 10/2023. She still reports irregular spotting/bleeding. Pelvic US in 12/2023 after 2 months off hormonal contraception demonstrated 3mm endometrial lining, otherwise normal US. NIKHIL PRAJAPATI MD [address], [place], [address], [facility] 02/02/2024 11:00:31 04/02/2024 text/html Patient here for STI testing. Patient has noticed pink discharge for the past two days when wiping. Patient states that she had a normal period 03/18/24 that last 6 days with moderate flow. Pelvic u/s in Dec 2023 revealed thin uterine lining of 3 mm. Patient was given a trial of estradiol 2 mg tablets x 14 days two months ago d/t irregular spotting/bleeding since stopping hormonal BC in October 2023. Patient has tried several different hormonal BC methods, but has always had irregular, intermenstrual bleeding. Recent hormonal labwork was WNL. Patient uses condoms for contraception currently.Patient denies dysuria, urgency, or frequency. Reports white vaginal discharge and has to wear mini pad every day due to discharge. Denies odor or itching. MARGO ALAS NP [address], [place], [address], [facility] 04/02/2024 18:09:54 05/20/2024 text/html Presents to the office today to confirm . Patient denies any problems up to this point with her . Patient denies cramping or vaginal bleeding. Minimal nausea No PMH/PSH. Denies tobacco/EtOH/illicit s. NIKHIL PRAJAPATI MD [address], [place], [address], [facility] 05/21/2024 18:49:42 OBGyn Episode Ob Episode Information Episode Created Date Number of Fetuses Patient Bloodtype Patient rh Status Prepregnancy Weight lbs Domestic Partner Domestic Partner Phone Father Name Tenant Coordinator Status 05/03/19 24 1 CLOSED Fetus Data First Name Last Name Admitted to NICU Weight (g) Sex Living Outcome Pediatric Complications Fetus ID Race Codes Race Delivery Type [id number] Mike Calculation Initial Mike Date Initial Exam Date Initial Exam Provider Initial Ultrasound Date Last Menstrual Period Date Ultra Sound Weeks Gestation 0 Eighteen To Twenty Week Mike Update Ultra Sound Date Fundal Height At Umbil Quickening Date Ultra Sound Latest Weeks Gestation Final Mike Confirmed By Final Mike Confirmed Date Final Mike Date Ultra Sound Latest Days Gestation 0 0 Menstrual History Last Menstrual Date Menses Monthly On Bcp Conception Prior Menses Frequency Hcg Plus Date Menarche Onset Age Delivery Information Delivery Date Delivery Type Labor Anesthesia Weeks Gestation Incision Type Labor Labor Length Hrs Delivered By Post Complications Tubal Sterilization Discharge Date Comments 1 Discharge Information Feeding Method Contraceptive Method Maternal HG B and HCT Levels
--- OUTSIDE RECORDS SUMMARY | 2024-07-20 12:56 | XMS_ITS | Clinical Summary ---
Author Organization [facility] Address [address] [address] Care Team Providers Care Passenger Agent Name Role Phone Robyn Díaz MD Unavailable Jackie Fonseca MD Primary Care Provider [phone] Source Comments [facility],non-owned Affiliates and Associated Physician Practices is amultiple site organization consisting of ambulatory clinics and hospital sitesin [place], [place], [place] and [place]. This disclosure is being madepursuant to the Care Everywhere program and may not contain all information available regarding this patient. Last updated 17.[facility] Allergies No known active allergies Medications * Be aware that medications may not be up to date on this document. Alwaysverify current medications with the patient. amphetamine-dex troamphetamine XR 24hr (ADDERALL XR) 15 MG capsule Take 1 capsule by mouth every morning 30 capsule 12/07/2018 Active Active Problems Problem Noted Date Diagnosed Date Acute pain in female pelvis 12/07/2015 BMI (body mass index), pedia tric, 85% to less than 95% for age 0609/05/2013 ADD (attention deficit disorder) 09/05/2013 Resolved Problems Problem Noted Date Diagnosed Date Resolved Date Collar Bone Fracture at 09/03/2013 Screening for condition 08/12 Overview (12/11/2014): Pediatric Screening Measures PPD Date: 08/04/06 Result: neg Hearing Screen Date: N/A Result: passed bilat in preschool Immunizations Immunization Administration Dates Next Due DTaP VACCINE IM (6wk-6yrs) 08/04/2006,,2001,06/08,2001 HEP A PEDS 2 DOSE 06/04/2006,05/20/2004 HEP B VACCINE, PED/ADOL 2001,2001, INFLUENZA VACCINE, QUADR. (F LUZONE; FLULAVAL; FLUARIX; AFLURIA QUADRIVALENT; 6MO+), 0.5 ML (IIV4) 12/07/2018,01/08/2018 MENINGOCOCCAL ACWY (MCV4P) VAC IM 01/08/2018, MMR 08/04/2006,01/31/2002 PNEUMOCOCCAL CONJ, PEDS 01/31/2002,09/14,2001,04/10 POLIO IPV 08/04/2004, 3,2001,04/10 PPD 08/04/2006,01/31/2002 TDAP (7yrs+) 10/04/2011 VARICELLA 08/04/2006,05/03/2002 Family History Medical History Relation Name Comments Hypercholesterolemia Father Cancer Maternal Grandfather Thyroid Disease Maternal Grandfather Allergies Maternal Grandmother Cancer Maternal Grandmother Thyroid Disease Maternal Grandmother Thyroid Disease Mother Hypertension Paternal Grandmother Relation Name Status Comments Father Maternal Grandfather Maternal Grandmother Mother Paternal Grandmother Social History Tobacco Use Types Packs/Day Years Used Date Smoking Tobacco: Never Assessed Comments No Sex and Gender Information Value Date Recorded Sex Assigned at Not on file Legal Sex Female 4:20 PM CDT Gender Identity Not on file Sexual Orientation Not on file Last Filed Vital Signs Vital Sign Reading Time Taken Comments Blood Pressure 111/70 04/20/2018 3:07 PM SALES AND MARKETING MANAGER Pulse 71 04/20/2018 3:07 PM SALES AND MARKETING MANAGER Temperature 36.9 C (98.5 F) 12/07/2018 4:18 PM CDT Respiratory Rate - - Oxygen Saturation - - Inhaled Oxygen Concentration - - Weight 61.5 kg (135 lb 9.6 oz) 12/07/2018 4:18 P M CDT Height 161.9 cm (5' 3.75) 04/20/2018 3:07 PM CS T Body Mass Index - - Plan of Treatment Health Maintenance Due Date Last Done Comments HIV SCREENING 01/30/2016 HPV VACCINE (1 - 3-dose series) 01/30/2016 MENINGOCOCCAL (Group B) VACCINE SHARED DECISION-MAKING (1 of 2 - Standard) 2017 CHLAMYDIA/GONORRHEA SCREENING 05/05/2018 05/05/2017 HEPATITIS C SCREENING 01/25/2019 DTAP/TDAP/TD VACCINES (7 - Td or Tdap) 10/03/2021 10/04/2011, 08/04/2006, 08/01/2002, Additional history exists COVID-19 VACCINE ( season) 2023 DEPRESSION SCREENING 03/13/2024 INFLUENZA VACCINE (Season Ended) 2024 12/07/2018, 01/08/2018 ZOSTER VACCINE (1 of 2) 2051 HEPATITIS B VACCINE Completed 2001, 2001, 2001 PNEUMOCOCCAL VACCINE Completed 01/31/2002, 2001, 2001, Additional history exists MENINGOCOCCAL GROUPS A/C/Y/W VACCINE Completed 01/08/2018, 10/02/2015 HIB VACCINE Aged Out No longer eligi ble based on patient's age to complete this topic Goals Goal Patient Goal Type Associated Problems Recent Progress Patient-Stated? Author Use safety retraint in car Lifestyle On track( 017 1:49 PM SALES AND MARKETING MANAGER) No Anna Lora RN Procedures Procedure Name Priority Date/Time Associated Diagnosis Comments CHLAMYDIA + GC AMPLIFIED PROBE Routine 05/05/2017 3:20 PM SALES AND MARKETING MANAGER Dysuria from Last 3 Months or Most Recently Relevant to Health Maintenance Results * (ABNORMAL) CHLAMYDIA + GC AMPLIFIED PROBE (05/05/2017 3:20 PM SALES AND MARKETING MANAGER) Chlamydia LAVON Urine Positive(A) Negative [facility] ACCOUNT BILL Comment:. GC LAVON Urine Negative Negative [facility] ACCOUNT BILL Microbiology URINE / Unknown 05/05/2017 3 :20 PM SALES AND MARKETING MANAGER 05/05/2017 Narrative Resulting Agency Comment [facility] [address] [place] [id number] Jackie Fonseca MD LAB - MICROBIOLOGY ORDERABLES Final Result [facility] ACCOUNT BILL [address] [place] [address] from Last 3 Months or Most Recently Relevant to Health Maintenance Insurance [facility] Care Teams Passenger Agent Relationship Specialty Start Date End Date Robyn Díaz MD PCP - Pediatrics 12/04/08 Jackie Fonseca MD PCP - General Pediatrics 09/03/13
--- OUTSIDE RECORDS SUMMARY | 2024-07-20 14:08 | XMS_ITS | Clinical Summary ---
Author Organization [facility] Address [address] [place] [address] Care Team Providers Care Casino Investigator Name Role Phone Robyn Díaz MD Unavailable Jackie Fonseca MD Primary Care Provider [phone] Source Comments [facility],non-owned Affiliates and Associated Physician Practices is amultiple site organization consisting of ambulatory clinics and hospital sitesin [place], [place], [place] and [place]. This disclosure is being madepursuant to the Care Everywhere program and may not contain all information available regarding this patient. Last updated 17.[employer] [facility] Allergies No known active allergies Medications * [...] Comments Blood Pressure 111/70 04/20/2018 3:07 PM STAFF TRAINER Pulse 71 04/20/2018 3:07 PM STAFF TRAINER Temperature 36.9 C (98.5 F) 12/07/2018 4:18 [...] car Lifestyle On track( 017 1:49 PM STAFF TRAINER) No Anna Lora RN Procedures Procedure Name Priority Date/Time Associated Diagnosis Comments CHLAMYDIA + GC AMPLIFIED PROBE Routine 05/05/2017 3:20 PM STAFF TRAINER Dysuria from Last 3 Months or Most Recently Relevant to Health Maintenance Results * (ABNORMAL) CHLAMYDIA + GC AMPLIFIED PROBE (05/05/2017 3:20 PM STAFF TRAINER) Chlamydia LAVON Urine Positive(A) Negative [facility] ACCOUNT BILL Comment:. GC LAVON Urine Negative Negative [facility] ACCOUNT BILL Microbiology URINE / Unknown 05/05/2017 3 :20 PM STAFF TRAINER 05/05/2017 Narrative Resulting Agency Comment [facility] [address] [place] [id number] Jackie Fonseca MD LAB - MICROBIOLOGY ORDERABLES Final Result [facility] ACCOUNT BILL [address] [place] [address] from Last 3 Months or Most Recently Relevant to Health Maintenance Insurance [facility] Care Teams Casino Investigator Relationship Specialty Start Date End Date Robyn Daíz MD PCP - Pediatrics 12/04/08 Jackie Fonseca MD PCP - General Pediatrics 09/03/13
--- NOTE | 2024-07-20 14:30 | ED_ITS ---
HPI - Female Genitourinary General Chief complaint: FIBERGLASSER <Orin England PA-C - Last Filed: 07/20/24 16:08> Stated complaint: Abnormal vaginal bleeding <Orin England PA-C - Last Filed: 07/20/24 16:08> Time Seen by Provider: 07/20/24 14:00 <Orin England PA-C - Last Filed: 07/20/24 16:08> History of Present Illness HPI Narrative: 24-year-old female who is A2 presents to the emergency department with family at bedside for abnormal uterine bleeding that started at 10:30 a.m. this morning. Patient states she had an outpatient D&C at [facility] on 05/25 for a 9 week gestation. States she had some light spotting for about a week after the procedure but has not had any vaginal bleeding since, no menstrual cycle since. Today at 10:30 a.m. began having large amount of vaginal bleeding and passing ?chicken breast? sized clots. Patient states she put a pad on 15 minutes prior to my evaluation but has since saturated through a pad. She notes intermittent dizziness/lightheadedness. She denies abdominal pain or cramping, chest pain shortness of breath, dysuria. She is not on anticoagulants. She is established with [facility]. <Orin England PA-C - Last Filed: 07/20/24 16:08> Related Data Home medications: Home Medications ?Medication ?Instructions ?Recorded ?Confirmed ?Last Taken ?Type No Home Medications 04/19/23 07/20/24 Unknown History <Orin England PA-C - Last Filed: 07/20/24 16:08> Allergies/Adverse reactions: Allergies Allergy/AdvReac Type Severity Reaction Status Date / Time No Known Allergies Allergy Verified 07/20/24 12:54 <Orin England PA-C - Last Filed: 07/20/24 16:08> Review of Systems 2 Review of Systems: All systems reviewed & are unremarkable except as noted in HPI and below <Orin England PA-C - Last Filed: 07/20/24 16:08> [facility] Past Medical History Medical History: Medical History Constipation by delayed colonic transit Contraception management Encounter for wellness examination Tympanic membrane disorder <LISA Chamberlain Last Filed: 07/20/24 16:08> Surgical History Surgical History: Surgical History No pertinent past surgical history No significant past surgical history <LISA Chamberlain Last Filed: 07/20/24 16:08> Family History Family History: Family History Mother No significant family history Thyroid disease Grandparent Breast cancer, Onset Age: 60 <LISA Chamberlain Last Filed: 07/20/24 16:08> Social History Social History: Social History Social History: Single Smoking status: Smoker, status unknown Additional smoking assessment comments: Pt has been vaping for 4 years. Alcohol intake: former Substance use: current Substance use type: marijuana Do You Feel Safe in your Home?: Yes Lack of Transportation: No Lack of Food: Never True Current Housing: I Have Housing Concerned About Future Housing: No Difficulty Paying Gas/Electric Bills: No Difficulty Paying for Meds: No Currently Unemployed: No Education: High School Diploma/GED Difficulty w/ Childcare or Family Care: No Living arrangements: with family Occupation/Education: occupation Gender identity (if verbalized by the patient): Female Sexual Orientation (if Verbalized by the Patient): Straight or Heterosexual Spiritual care concerns: No <LISA Chamberlain Last Filed: 07/20/24 16:08> Exam 2 Narrative: GENERAL: Well-appearing, well-nourished, and in no acute distress. HEAD: Normocephalic, atraumatic. EYES: EOMI. ENT: Nares clear, no rhinorrhea or epistaxis. Mucous membranes moist. NECK: Supple. CHEST: Clear to auscultation. No respiratory distress. HEART: Regular rate and rhythm. No murmur heard. Normal peripheral pulses. ABDOMEN: Soft, nontender, nondistended, normal active bowel sounds. No rebound, guarding or rigidity. No CVA tenderness. : Patient sitting on Chux pad saturated with bright red blood. Normal external genitalia. Vaginal vault with large amount of bright red blood pooling in the vaginal vault and unable to be cleared, large clots, cervix not visualized due to amount of bleeding EXTREMITIES: Normal range of motion. No edema. SKIN: Warm, dry, no rash. NEURO: No focal deficits. Alert and oriented x3 <Orin England PA-C - Last Filed: 07/20/24 16:08> Course RN IMAGING/PA Physician Supervision I agree with midlevel documentation; I performed the medical decision making component of this evaluation. I had independent verb-jy-zsyu time with the patient and performed my own independent evaluation and assessment. Patient has profound vaginal bleeding at this time passing large amounts blood clots, appears diaphoretic, cool and clammy. TXA was initiated IV 1 mg and pelvic ultrasonography was ordered showing potential retained products. Patient is hemodynamically stabilized after fluids and TXA. OBGYN was called and will take the patient to the operative room for D&C. Patient left the department to go to the OR in stable condition. <Simone Van MD - Last Filed: 07/20/24 19:08> Vital Signs Vital signs: Vital Signs Temperature 36.3 C L 07/20/24 13:19 Pulse Rate 93 07/20/24 13:19 Respiratory Rate 16 07/20/24 13:19 Blood Pressure 110/63 07/20/24 13:19 Pulse Oximetry 100 07/20/24 13:19 Oxygen Delivery Room Air 07/20/24 13:19 Temperature 36.6 C 07/20/24 18:15 Pulse Rate 70 07/20/24 18:32 Respiratory Rate 16 07/20/24 18:32 Blood Pressure 101/68 07/20/24 18:32 Pulse Oximetry 100 07/20/24 18:32 Oxygen Delivery Room Air 07/20/24 18:32 <Orin England PA-C - Last Filed: 07/20/24 16:08> Vital Signs Temperature 36.3 C L 07/20/24 13:19 Pulse Rate 93 07/20/24 13:19 Respiratory Rate 16 07/20/24 13:19 Blood Pressure 110/63 07/20/24 13:19 Pulse Oximetry 100 07/20/24 13:19 Oxygen Delivery Room Air 07/20/24 13:19 Temperature 36.6 C 07/20/24 18:15 Pulse Rate 70 07/20/24 18:32 Respiratory Rate 16 07/20/24 18:32 Blood Pressure 101/68 07/20/24 18:32 Pulse Oximetry 100 07/20/24 18:32 Oxygen Delivery Room Air 07/20/24 18:32 <Simone Van MD - Last Filed: 07/20/24 19:08> MDM - Female Genitourinary MDM Narrative Medical decision making narrative: 24-year-old female who is A2 presents to the ED for abnormal uterine bleeding that started at 10:30 a.m. this morning. Patient had an outpatient D&C at [facility] on 05/25 for a 9 week gestation, followed by 1 week of vaginal spotting but no bleeding since. Triage vitals are stable. Exam is notable for the above. Patient is bleeding a considerable amount, cervix is unable to be visualized due to a pooling of blood and passage of large clots. CBC without leukocytosis, hemoglobin is 11. Per chart review hemoglobin ranges between 12-14 at baseline. Chemistries are largely unremarkable. is negative. Pelvic ultrasound shows a thickened heterogeneous endometrium with minimal vascularity which is most likely indicates retained products of conception, otherwise normal pelvic ultrasound. Patient did have a episode of diaphoresis, hypotension, tachycardia, nausea and vomiting. I immediately evaluated the patient at [facility] with Dr. Van. She was given 4mg of zofran and 1g of TXA, fluids ongoing. Patient did improve and respond appropriately, however did have continuous heavy vaginal bleeding. I did discuss case with OBGYN on-call, Dr. Cid, who plans to come in for emergent D&C given continuous and active hemorrhage. Vital signs of improvement patient remains stable at this time. Will continue to closely monitor with low threshold for blood transfusion if she becomes hemodynamically unstable. <Orin England PA-C - Last Filed: 07/20/24 16:08> Lab Data Result diagrams: 07/20/24 16:11 07/20/24 14:52 <Orin England PA-C - Last Filed: 07/20/24 16:08> Labs: Lab Results 07/20/24 07/20/24 07/20/24 Range/Units 14:52 16:08 16:11 WBC 8.8 (4.5-10.0) K/mm3 RBC 3.65 L (4.2-5.4) M/mm3 Hgb 11.0 L 9.2 L (12.0-15.0) g/dL Hct 33.1 L 27.8 L (37.0-47.0) % MCV 90.7 (80-100) fl MCH 30.1 (26-34) pg MCHC 33.2 (32-36) g/dl RDW 12.0 (11.5-14.5) % Plt Count 236 (150-375) k/mm3 MPV 9.7 (7.4-10.4) fl Immature Gran % (Auto) 0.3 (0-0.5) % Neut % (Auto) 67.1 (45.5-73.1) % Lymph % (Auto) 23.7 (18.3-44.2) % [place] % (Auto) 6.5 (2.6-8.5) % Eos % (Auto) 1.7 (0-4.4) % Baso % (Auto) 0.7 (0.2-1.2) % Lymph # (Auto) 2.08 (0.9-3.2) K/mm3 [place] # (Auto) 0.6 (0.1-0.6) K/mm3 Eos # (Auto) 0.2 (0-0.3) K/mm3 Baso # (Auto) 0.1 (0.0-0.1) K/mm3 Abs Immat Gran (auto) 0.03 (0.00-0.031) K/mm3 Absolute Neuts (auto) 5.9 (1.3-6.7) K/mm3 Absolute Nucleated RBC 0.000 (0.0-0.012) K/mm3 Nucleated RBC % 0.0 (0.0-0.2) % PT 14.9 H (11.1-14.7) Seconds INR 1.1 APTT 28.2 (22.3-36.8) Seconds Sodium 138 (137-145) mmol/L Potassium 4.3 (3.4-5.0) mmol/L Chloride 106 (98-107) mmol/L Carbon Dioxide 27 (22-30) mmol/L Anion Gap 5 (4-12) mmol/L BUN 12 (7-17) mg/dL Creatinine 0.64 L (0.7-1.0) mg/dL Estim Creat Clear Calc 97 ml/min Estimated GFR > 60 (59 - ) Glucose 95 (65-110) mg/dL Calcium 8.4 (8.4-10.2) mg/dL Total Bilirubin 0.7 (0.2-1.3) mg/dL AST 34 (14-36) U/L ALT 36 H (6-35) U/L Alkaline Phosphatase 54 (38-126) U/L Total Protein 6.0 L (6.3-8.2) g/dL Albumin 3.9 (3.5-5.1) g/dL Serum HCG, Qual Negative POC Urine HCG, Qual Negative (Negative) Blood Type O Positive Antibody Screen Negative <Orin England PA-C - Last Filed: 07/20/24 16:08> Lab Results 07/20/24 07/20/24 07/20/24 Range/Units 14:52 16:08 16:11 WBC 8.8 (4.5-10.0) K/mm3 RBC 3.65 L (4.2-5.4) M/mm3 Hgb 11.0 L 9.2 L (12.0-15.0) g/dL Hct 33.1 L 27.8 L (37.0-47.0) % MCV 90.7 (80-100) fl MCH 30.1 (26-34) pg MCHC 33.2 (32-36) g/dl RDW 12.0 (11.5-14.5) % Plt Count 236 (150-375) k/mm3 MPV 9.7 (7.4-10.4) fl Immature Gran % (Auto) 0.3 (0-0.5) % Neut % (Auto) 67.1 (45.5-73.1) % Lymph % (Auto) 23.7 (18.3-44.2) % [place] % (Auto) 6.5 (2.6-8.5) % Eos % (Auto) 1.7 (0-4.4) % Baso % (Auto) 0.7 (0.2-1.2) % Lymph # (Auto) 2.08 (0.9-3.2) K/mm3 [place] # (Auto) 0.6 (0.1-0.6) K/mm3 Eos # (Auto) 0.2 (0-0.3) K/mm3 Baso # (Auto) 0.1 (0.0-0.1) K/mm3 Abs Immat Gran (auto) 0.03 (0.00-0.031) K/mm3 Absolute Neuts (auto) 5.9 (1.3-6.7) K/mm3 Absolute Nucleated RBC 0.000 (0.0-0.012) K/mm3 Nucleated RBC % 0.0 (0.0-0.2) % PT 14.9 H (11.1-14.7) Seconds INR 1.1 APTT 28.2 (22.3-36.8) Seconds Sodium 138 (137-145) mmol/L Potassium 4.3 (3.4-5.0) mmol/L Chloride 106 (98-107) mmol/L Carbon Dioxide 27 (22-30) mmol/L Anion Gap 5 (4-12) mmol/L BUN 12 (7-17) mg/dL Creatinine 0.64 L (0.7-1.0) mg/dL Estim Creat Clear Calc 97 ml/min Estimated GFR > 60 (59 - ) Glucose 95 (65-110) mg/dL Calcium 8.4 (8.4-10.2) mg/dL Total Bilirubin 0.7 (0.2-1.3) mg/dL AST 34 (14-36) U/L ALT 36 H (6-35) U/L Alkaline Phosphatase 54 (38-126) U/L Total Protein 6.0 L (6.3-8.2) g/dL Albumin 3.9 (3.5-5.1) g/dL Serum HCG, Qual Negative POC Urine HCG, Qual Negative (Negative) Blood Type O Positive Antibody Screen Negative <Simone Van MD - Last Filed: 07/20/24 19:08> Critical Care Time Critical Care Time Critical Care Time: Yes <Simone Van MD - Last Filed: 07/20/24 19:08> Total Critical Care Time: 35 <Simone Van MD - Last Filed: 07/20/24 19:08> Discharge Plan Discharge Clinical Impression: Abnormal uterine bleeding, Retained products of conception <Orin England PA-C - Last Filed: 07/20/24 16:08> Patient Disposition: Still a Patient <Orin England PA-C - Last Filed: 07/20/24 16:08> Condition: Stable <Orin England PA-C - Last Filed: 07/20/24 16:08>
[2024-07-20 14:59] LABS: Basophils Absolute Auto 0.1 K/mm3 (0.0-0.1); Basophils Percent Auto 0.7 % (0.2-1.2); Eosinophils Absolute Auto 0.2 K/mm3 (0-0.3); Eosinophils Percent Auto 1.7 % (0-4.4); Hematocrit 33.1 % (37.0-47.0); Immature Granulocyte Absolute 0.03 K/mm3 (0.00-0.031); Immature Granulocyte Percent A 0.3 % (0-0.5); Lymphocytes Absolute Auto 2.08 K/mm3 (0.9-3.2); Lymphocytes Percent Auto 23.7 % (18.3-44.2); Mean Corpuscular HGB Conc 33.2 g/dl (32-36); Mean Corpuscular Hemoglobin 30.1 pg (26-34); Mean Corpuscular Volume 90.7 fl (80-100); Mean Platelet Volume 9.7 fl (7.4-10.4); Monocytes Absolute Auto 0.6 K/mm3 (0.1-0.6); Monocytes Percent Auto 6.5 % (2.6-8.5); Neutrophils Absolute Auto 5.9 K/mm3 (1.3-6.7); Neutrophils Percent Auto 67.1 % (45.5-73.1); Platelet Count Result 236 k/mm3 (150-375); Red Blood Count 3.65 M/mm3 (4.2-5.4); White Blood Count 8.8 K/mm3 (4.5-10.0)
[2024-07-20 15:10] LABS: Alanine Aminotransferase 36 U/L (6-35); Albumin Level 3.9 g/dL (3.5-5.1); Alkaline Phosphatase 54 U/L (38-126); Anion Gap 5 mmol/L (4-12); Aspartate Amino Transferase 34 U/L (14-36); Bilirubin,Total 0.7 mg/dL (0.2-1.3); Blood Urea Nitrogen 12 mg/dL (7-17); Calcium 8.4 mg/dL (8.4-10.2); Carbon Dioxide 27 mmol/L (22-30); Chloride 106 mmol/L (98-107); Estimated CRCL calculation 97 ml/min; Estimated Glomerular Filt Rate > 60; Glucose 95 mg/dL (65-110); INR 1.1; Potassium 4.3 mmol/L (3.4-5.0); Prothrombin Time 14.9 Seconds (11.1-14.7); Sodium 138 mmol/L (137-145)
[2024-07-20 15:11] LABS: Partial Thromboplastin Time 28.2 Seconds (22.3-36.8)
[2024-07-20] MEDS: SODIUM CHLORIDE 0.9% IV 1,000 ML 999 ML IV CONT ×2 (15:21→16:19)
[2024-07-20] MEDS: ONDANSETRON INJ 4 MG/2 ML VIAL (15:22)
[2024-07-20] MEDS: TRANEXAMIC ACID 1,000MG/ISO100 1,000 MG/100 ML BAG 600 MG IVPB (15:24)
[2024-07-20 15:34] LABS: SPREG INTERNAL CONTROL Positive; Serum Qual hCG Negative
[2024-07-20 16:10] LABS: BEDSIDEPREGUCG Negative (Negative)
--- OUTSIDE RECORDS SUMMARY | 2024-07-20 16:11 | XMS_ITS | Clinical Summary ---
Author Organization [facility] Address [address] [place] [address] Care Team Providers Care Records Custodian Name Role Phone Robyn Díaz MD Unavailable Jackie Fonseca MD Primary Care Provider [phone] Source Comments [facility],non-owned Affiliates and Associated Physician Practices is amultiple site organization consisting of ambulatory clinics and hospital sitesin [place], [place], [place] and [place]. This disclosure is being madepursuant to the Care Everywhere program and may not contain all information available regarding this patient. Last updated 17.[facility] Allergies No known active allergies Medications * [...] Comments Blood Pressure 111/70 04/20/2018 3:07 PM ELECTRONIC OPERATOR Pulse 71 04/20/2018 3:07 PM ELECTRONIC OPERATOR Temperature 36.9 C (98.5 F) 12/07/2018 4:18 [...] car Lifestyle On track( 017 1:49 PM ELECTRONIC OPERATOR) No Anna Lora RN Procedures Procedure Name Priority Date/Time Associated Diagnosis Comments CHLAMYDIA + GC AMPLIFIED PROBE Routine 05/05/2017 3:20 PM ELECTRONIC OPERATOR Dysuria from Last 3 Months or Most Recently Relevant to Health Maintenance Results * (ABNORMAL) CHLAMYDIA + GC AMPLIFIED PROBE (05/05/2017 3:20 PM ELECTRONIC OPERATOR) Chlamydia LAVON Urine Positive(A) Negative [facility] ACCOUNT BILL Comment:. GC LAVON Urine Negative Negative [facility] ACCOUNT BILL Microbiology URINE / Unknown 05/05/2017 3 :20 PM ELECTRONIC OPERATOR 05/05/2017 Narrative Resulting Agency Comment [facility] [address] [place] [id number] Jackie Fonseca MD LAB - MICROBIOLOGY ORDERABLES Final Result [facility] ACCOUNT BILL [address] [place] [address] from Last 3 Months or Most Recently Relevant to Health Maintenance Insurance [facility] Care Teams Records Custodian Relationship Specialty Start Date End Date Robyn Díaz MD PCP - Pediatrics 12/04/08 Jackie Fonseca MD PCP - General Pediatrics 09/03/13
[2024-07-20 16:21] LABS: Hematocrit 27.8 % (37.0-47.0); Hemoglobin 9.2 g/dL (12.0-15.0)
--- NOTE | 2024-07-20 16:30 | PM.IMHP ---
H&P: HPI History of Present Illness Date/Time: 07/20/24 16:30 Chief Complaint: Vaginal bleeding Narrative: 24-year-old female who is approximately 2 months post elective termination who is having vaginal hemorrhage. Has not had a regular menses since the termination. Has a negative test. Denies any nausea, vomiting, fever, chills. We have agreed to move forward with suction D and C. She has some thickening and heterogeneity to the endometrium. The patient understands the details of the procedure. The procedure has been explained in detail. She understands the risks. She understands that injuries may occur that result in hospitalization, more surgery, and severe illness. She understands risk of hemorrhage and infection. She denies any chest pain or shortness of breath. She denies any nausea, vomiting, fever, chills. Review of Systems Review of Systems: All systems reviewed & are unremarkable except as noted in HPI and below Constitutional: Constitutional: Denies chills, Denies fatigue, Denies fever(s) and Denies weakness Eyes: Eyes: Denies blurry vision, Denies change in vision, Denies loss of peripheral vision, Denies loss of vision, Denies other visual disturbances and Denies eye pain ENT: Denies vertigo, Denies dizziness, Denies hearing loss, Denies mouth pain, Denies nasal obstruction, Denies neck mass and Denies neck pain Cardiovascular: Cardiovascular: Denies chest pain, Denies diaphoresis, Denies syncope, Denies leg edema and Denies dyspnea Respiratory: Respiratory: Denies chest congestion, Denies cough, Denies hemoptysis, Denies dyspnea and Denies wheezing Gastrointestinal: Gastrointestinal: Denies abdominal pain, Denies constipation, Denies diarrhea, Denies nausea and Denies vomiting Genitourinary: Genitourinary: Denies hematuria, Denies change in libido, Denies nocturia, Denies genital lesions, Denies flank pain and Denies urinary urgency Musculoskeletal: Musculoskeletal: Denies abnormal gait, Denies back pain, Denies myalgias, Denies arthralgias, Denies joint swelling, Denies muscle weakness and Denies neck pain Integumentary/Breasts: Skin/Breast: Denies swelling, Denies breast pain, Denies breast mass, Denies dry skin, Denies nipple discharge, Denies unusual bruising and Denies jaundice Neurologic: Denies Neuro-related abnormal movements, Denies Abnormal speech present, Denies abnormal gait, Denies behavioral changes, Denies confusion, Denies vertigo, Denies dizziness, Denies syncope, Denies loss of vision, Denies memory loss, Denies convulsions and Denies weakness Psychiatric: Psychiatric: Denies abnormal sleep pattern, Denies behavioral changes, Denies change in libido, Denies confusion, Denies depression, Denies anhedonia and Denies memory loss Endocrine: Endocrine: Reports no additional endocrine complaints, Denies change in libido and Denies fatigue Hematologic/Lymphatic: Hematologic/Lymphatic: Reports no additional hematologic/lymphatic complaints Allergic/Immunologic: Allergic/Immunologic: Reports no additional allergic/immunologic complaints and Denies wheezing PMFSH Past Medical History Medical History Constipation by delayed colonic transit Contraception management Encounter for wellness examination Tympanic membrane disorder Surgical History Surgical History No pertinent past surgical history No significant past surgical history Family History Family History Mother No significant family history Thyroid disease Grandparent Breast cancer, Onset Age: 60 Social History Social History Social History: Single Smoking status: Smoker, status unknown (vaping) Tobacco type: e-cigarettes/vaping Additional smoking assessment comments: Pt has been vaping for 4 years. Alcohol intake: former Substance use: current Substance use type: marijuana Lack of Transportation: No Lack of Food: Never True Current Housing: I Have Housing Concerned About Future Housing: No Difficulty Paying Gas/Electric Bills: No Difficulty Paying for Meds: No Currently Unemployed: No Education: High School Diploma/GED Difficulty w/ Childcare or Family Care: No Living arrangements: with family Occupation/Education: occupation Gender identity (if verbalized by the patient): Female Sexual Orientation (if Verbalized by the Patient): Straight or Heterosexual Spiritual care concerns: No Meds Home Medications and Allergies Home Medications ?Medication ?Instructions ?Recorded ?Confirmed ?Type No Home Medications 04/19/23 04/19/23 History Allergies Allergy/AdvReac Type Severity Reaction Status Date / Time No Known Allergies Allergy Verified 07/20/24 12:54 Vital Signs Vital Signs - 24 hr 07/20/24 13:19 07/20/24 16:09 Temperature 97.3 F L Pulse Rate 93 79 Respiratory Rate 16 20 Blood Pressure 110/63 118/69 Pulse Oximetry 100 99 Oxygen Delivery Room Air Exam Const: General: cooperative, healthy appearing, comfortable and no acute distress Orientation/consciousness: oriented to person, oriented to place and oriented to time HENMT: Head: normal to inspection Ears: external ears normal Face/Nose/Sinus: Normal external nose present and normal facial exam Face and sinus: normal facial exam Eyes: General: appearance normal, both eyes and all related structures Neck: Neck: normal visual inspection, trachea midline and supple Resp: Auscultation: clear to auscultation bilaterally, no crackles, no rales, no rhonchi and no wheezes Cardio: Rate: regular rate Rhythm: regular rhythm Heart sounds: no click, no murmurs and no rubs GI: GI Palp: No abdominal tenderness, No Soft to palpation, No Tenderness to palpation present (GI) and No Palpable mass present Auscultation: normal bowel sounds Skin: General skin exam: normal color and no rashes or lesions noted Neuro: General: oriented to person, oriented to place and oriented to time Extrem: General: normal to inspection, no joint enlargement, no clubbing, cyanosis or edema, no pedal edema and no calf tenderness Psych: Appearance: grossly normal Mental Status: mental status grossly normal Speech and movement: Normal speech and movement present H&P: Results Labs Labs: Short CBC 07/20/24 07/20/24 Range/Units 14:52 16:11 WBC 8.8 (4.5-10.0) K/mm3 Hgb 11.0 L 9.2 L (12.0-15.0) g/dL Hct 33.1 L 27.8 L (37.0-47.0) % Plt Count 236 (150-375) k/mm3 BMP 07/20/24 14:52 Sodium 138 Potassium 4.3 Chloride 106 Carbon Dioxide 27 BUN 12 Creatinine 0.64 L Glucose 95 Calcium 8.4 Liver Function 07/20/24 Range/Units 14:52 Total Bilirubin 0.7 (0.2-1.3) mg/dL AST 34 (14-36) U/L ALT 36 H (6-35) U/L Alkaline Phosphatase 54 (38-126) U/L Albumin 3.9 (3.5-5.1) g/dL Assessment and Plan Assessment and plan (1) Painless vaginal hemorrhage: Code(s): N93.9 - Abnormal uterine and vaginal bleeding, unspecified Status: Acute Plan 24-year-old female who is approximately 2 months post elective termination who is having vaginal hemorrhage. Has not had a regular menses since the termination. Has a negative test. Denies any nausea, vomiting, fever, chills. We have agreed to move forward with suction D and C. She has some thickening and heterogeneity to the endometrium. Patient understands risks, benefits, and alternatives related she has completed informed consent process is ready to proceed.
--- NOTE | 2024-07-20 16:33 | WPDHPUPDATE1 ---
History and Physical Update Update Date/Time: 07/20/24 16:33 History and Physical has been reviewed, including an updated exam of the patient. There are NO changes in the patient's condition. Risks, benefits, and alternatives have been discussed and questions answered. Patient agrees to proceed with procedure.
--- NOTE | 2024-07-20 17:08 | WPDANESEPPF ---
Anes - Initial Pre Proc Eval Procedure: Operation Date: 07/20/24 17:30 Proposed Procedures p D&C Suction and Sharp - Nain Cid MD Date/Time: 07/20/24 17:08 Surgeon: Nain Cid MD Pre Op Diagnosis: Abnormal vaginal bleeding Patient Data Age: 24 Gender: F Height: 1.6 m Weight: 56.6 kg Last Vital Signs Temp 97.3 F L 07/20/24 13:19 Pulse 77 07/20/24 17:06 Resp 19 07/20/24 17:06 BP 101/65 07/20/24 17:06 Pulse Ox 100 07/20/24 17:06 O2 Del Method Room Air 07/20/24 13:19 Allergies Allergy/AdvReac Type Severity Reaction Status Date / Time No Known Allergies Allergy Verified 07/20/24 12:54 Home Medications ?Medication ?Instructions ?Recorded ?Confirmed ?Type No Home Medications 04/19/23 04/19/23 History Laboratory Tests 07/20/24 07/20/24 07/20/24 14:52 16:08 16:11 WBC 8.8 K/mm3 (4.5-10.0) RBC 3.65 L M/mm3 (4.2-5.4) Hgb 11.0 L g/dL 9.2 L g/dL (12.0-15.0) (12.0-15.0) Hct 33.1 L % 27.8 L % (37.0-47.0) (37.0-47.0) MCV 90.7 fl (80-100) MCH 30.1 pg (26-34) MCHC 33.2 g/dl (32-36) RDW 12.0 % (11.5-14.5) Plt Count 236 k/mm3 (150-375) MPV 9.7 fl (7.4-10.4) Immature Gran % (Auto) 0.3 % (0-0.5) Neut % (Auto) 67.1 % (45.5-73.1) Lymph % (Auto) 23.7 % (18.3-44.2) Shoshone % (Auto) 6.5 % (2.6-8.5) Eos % (Auto) 1.7 % (0-4.4) Baso % (Auto) 0.7 % (0.2-1.2) Lymph # (Auto) 2.08 K/mm3 (0.9-3.2) Shoshone # (Auto) 0.6 K/mm3 (0.1-0.6) Eos # (Auto) 0.2 K/mm3 (0-0.3) Baso # (Auto) 0.1 K/mm3 (0.0-0.1) Abs Immat Gran (auto) 0.03 K/mm3 (0.00-0.031) Absolute Neuts (auto) 5.9 K/mm3 (1.3-6.7) Absolute Nucleated RBC 0.000 K/mm3 (0.0-0.012) Nucleated RBC % 0.0 % (0.0-0.2) PT 14.9 H Seconds (11.1-14.7) INR 1.1 APTT 28.2 Seconds (22.3-36.8) Sodium 138 mmol/L (137-145) Potassium 4.3 mmol/L (3.4-5.0) Chloride 106 mmol/L (98-107) Carbon Dioxide 27 mmol/L (22-30) Anion Gap 5 mmol/L (4-12) BUN 12 mg/dL (7-17) Creatinine 0.64 L mg/dL (0.7-1.0) Estim Creat Clear Calc 97 ml/min Estimated GFR > 60 (59 - ) Glucose 95 mg/dL (65-110) Calcium 8.4 mg/dL (8.4-10.2) Total Bilirubin 0.7 mg/dL (0.2-1.3) AST 34 U/L (14-36) ALT 36 H U/L (6-35) Alkaline Phosphatase 54 U/L (38-126) Total Protein 6.0 L g/dL (6.3-8.2) Albumin 3.9 g/dL (3.5-5.1) Serum HCG, Qual Negative POC Urine HCG, Qual Negative (Negative) Blood Type O Positive Antibody Screen Negative Patient hx anesthesia problems: none Family hx anesthesia problems: none Results Review: All pre-operative results and documents have been reviewed as part of the pre-operative evaluation. COUNT INCLUDES THE [facility] Past Medical History Medical History Constipation by delayed colonic transit Contraception management Encounter for wellness examination Tympanic membrane disorder Surgical History Surgical History No pertinent past surgical history No significant past surgical history Family History Family History Mother No significant family history Thyroid disease Grandparent Breast cancer, Onset Age: 60 Social History Social History Social History: Single Smoking status: Smoker, status unknown (vaping) Tobacco type: e-cigarettes/vaping Additional smoking assessment comments: Pt has been vaping for 4 years. Alcohol intake: former Substance use: current Substance use type: marijuana Lack of Transportation: No Lack of Food: Never True Current Housing: I Have Housing Concerned About Future Housing: No Difficulty Paying Gas/Electric Bills: No Difficulty Paying for Meds: No Currently Unemployed: No Education: High School Diploma/GED Difficulty w/ Childcare or Family Care: No Living arrangements: with family Occupation/Education: occupation Gender identity (if verbalized by the patient): Female Sexual Orientation (if Verbalized by the Patient): Straight or Heterosexual Spiritual care concerns: No Anes - Eval Final PreProcedure Day of Procedure 07/20/24 17:08 Patient weight: normal Lungs: normal air movement Airway: Mallampati scale class II Neurological: alert and oriented Last oral intake: >/= 8 hours ASA classification: II Emergent: yes Anesthetic plan: proceed Anesthesia type and monitoring: general GIVS and standard monitoring Results Review: All pre-operative results and documents have been reviewed as part of the pre-operative evaluation. Pt smokes marijuana 1 Gm/day every day, and did smoked this am. Informed Consent: The patient's anesthetic plan and its attendant risks and benefits were discussed with the patient/family/POA. Questions were solicited and answers provided to the satisfaction of the patient/family/POA.
[2024-07-20] MEDS: LIDOCAINE 1% LOCAL INJ 10 ML VIAL INFILTRATE (17:23)
--- NOTE | 2024-07-20 17:30 | S_PTH ---
PATIENT: Hilda Caputo LOC: [id number] U#:[id number] AGE/SX: 24/F ROOM: 300 RE07/20/[address]: Nain Cid MD : 2000 BED: 01 DIS: 07/20/2024 SPEC #: [id number] RECD: 07/22/24 07:46 STATUS: SOUFiliberto REQ #: [id number] HUBER: 07/20/24 17:[address]: Nain Cid DEPT: [facility] Surgical RECD BY: Cinthya Carrizales ENTERED: 07/22/24 07:46 SP TYPE: Surgical OTHR DR: Adal Nye, MD Dewayne Haji, DO MD Simone Marte MD Tissues: A - Products of Conception Procedures: Hematoxylin and Eosin Stain Gross and Microscopic Level 4
[2024-07-20] MEDS: LACTATED RINGERS 1,000 ML 30 ML IV CONT (17:34)
[2024-07-20] MEDS: fentaNYL CITRATE INJ (*CRX) 100 MCG/2 ML VIAL 25 MCG IV PUSH ×2 (17:43→17:49)
--- NOTE | 2024-07-20 17:45 | P.OP_ITS ---
Procedure Note - Detailed Date of Procedure 07/20/24 Pre-op Diagnosis Abnormal vaginal bleeding, incomplete termination Post-op Diagnosis Same Procedure Performed Suction D&C Surgeon Nain Cid MD Anesthesia MAC Indications Incomplete termination Findings normal-appearing vulva vagina and cervix to. Small amount of products conception within the uterus. 8 cm uterus Description of Procedure the patient was taken the operating room. She was prepped and draped in dorsal lithotomy position after induction of mac anesthesia. A speculum was placed in the vagina. Cervix grasped with tenaculum. The cervix was dilated to about 1 cm Using Falk dilators. A 8. Filipino curved curette was used to perform suction D&C. The curette was introduced and vacuum was applied. The curette was removed over all surfaces of the intrauterine cavity multiple times. This was done until all the surfaces were clear and had the familiar grainy texture they can be felt through the instrument. A sharp curette was then used to curettage all the surfaces. The suction cup was then reapplied 1 more time to remove any debris. The instruments were removed. The speculum and tenaculum were removed. The patient tolerated the procedure well. She was taken recovery room stable condition. Estimated Blood Loss 100 Drains No Packing No Pathology Yes Complications No immediate complications Condition Stable Disposition PACU
[2024-07-20] MEDS: ESTROGENS, CONJUGATED 25 MG/5 ML VIAL IV PUSH (18:05)
--- NOTE | 2024-07-20 18:56 | ADMGEN ---
This patient, Hilda Caputo, was admitted to [facility] Surg Room 300-01. Patient/family oriented to hospital policies and general routines including ID bracelet, bed and alarms, visiting hours, pain management, procedures, bathroom and other care routines, personal items, smoking policy, room service/diet, and visiting hours. Information on how to activate the Rapid Response Team has been discussed. Patient/Family are encouraged to report perceived risks to care and to ask questions if they do not understand what they are told or what they should do.
[2024-07-20 19:57] LABS: Add Urine Microscopic? YES; Appearance Urine Clear (Clear); Bacteria Urine None Seen /hpf; Bilirubin Urine Negative (Negative); Blood Urine 3+ (Negative); Color Urine Yellow (Yellow); Glucose Urine UA Negative (Negative); Ketones Urine 1+ mg/dL (Negative); Leukocyte Esterase Ur Negative LEU/UL (Negative); Need Manual Microscopic Reviewed; Nitrate Urine Negative (Negative); Protein Urine Trace mg/dL (Negative); RBC Urine >100 /hpf (0-2); Specific Grav Ur 1.022 (1.001-1.035); Squamous Epithelial Cell Urine None Seen /hpf (Few); Urobilinogen Urine 0.2 mg/dL (<2.0); WBC Urine 0-5 /hpf (0-3)
--- NOTE | 2024-08-09 11:34 | P.DS_ITS ---
DS: Admitting Diagnosis Discharge Date 07/20/24 Admitting Diagnosis incomplete miscarriage, hemorrhage DS: Discharge Diagnosis Discharge Diagnosis (1) Retained products of conception: Status: Acute DS: Summary Hospital Course Hospital Course: 24-year-old female with heavy vaginal bleeding and incomplete . Patient was treated with suction D&C. She was observed for a period time and then discharged home. Time Spent with Patient Time attestation: Total time spent providing and/or coordinating discharge services: DS: Data Data Completed and Pending Completed studies during hospitalization: Pending at discharge 07/20/24 17:30 Surgical [PTH] Routine Discharge Plan Discharge Attending physician on discharge: Nain Cid Consulting providers: Simone Van; Dewayne Haji; Adal Nieto Discharging Clinician: Nain Cid Anticipated Discharge Date/Time: 07/20/24 20:21 Patient Disposition: Home Activity: no preference Diet: as tolerated and regular Wound Care Instructions: follow printed instructions Patient Instructions: Antibiotic Form Patient Language: Chinese Stand Alone Forms: General Discharge Information Follow-up/Referrals: Nicky Barajas MD [Primary Care Provider] - Discharge Medications: No Action No Home Medications Date of admission: 07/20/24 18:33 Primary Care Provider: Nicky Barajas Admitting Provider: Nain Cid Attending physician on admission: Nain Cid Condition: Stable
== END 2024-07-20 20:32 | disposition home or self-care (01) ==
LOC: ANHED 16:08 → ANHSURGERY 16:09 → ANH3MEDSUR 18:35
PROVIDERS: Admitting Provider Obstetrics & Gynecology; Emergency Provider Physician Assistant; PCP Family Medicine; Visit Provider Obstetrics & Gynecology
PROC: (CPT 59812; principal; 2024-07-20 17:30)
DX: O07.4 Failed attempted termination of pregnancy without complication (principal); Z32.02 Encounter for pregnancy test, result negative; F17.290 Nicotine dependence, other tobacco product, uncomplicated
CPT/HCPCS: 59812; 36415; 76856; 80053; 81001; 81025; 84703; 85014; 85018; 85025; 85610; 85730; 86850; 86900; 86901; 88305; 96361; 96365; 96375; 99285; G0378; G0379; J1410; J2003; J2405; J2704; J3010; J7030; J7120

== ENCOUNTER 2024-09-21 16:28 | Emergency (ER) | payer OTHER, SELFPAY ==
[2024-09-21 16:26] VITALS: BP 120/77; PULSE 78; RESP 16; TEMP 36.7; O2SAT 100
--- NOTE | 2024-09-21 16:50 | ED_ITS ---
HPI - General Adult General Chief complaint: Psychiatric Symptoms <Paulo Tolliver MD - Last Filed: 09/21/24 19:46> Stated complaint: anxiety <Paulo Tolliver MD - Last Filed: 09/21/24 19:46> Time Seen by Provider: 09/21/24 20:02 <Paulo Tolliver MD - Last Filed: 09/21/24 19:46> History of Present Illness HPI narrative: This is a 24-year-old female history of ADHD presenting for psychiatric evaluation. Patient says that she has been not feeling well for the last year. She has significant feelings of anxiety. She says that she does not want to feel this way anymore. She says that she wants other people to know how much she is hurting. This has been worsened lately after a break-up with a boy. They are now both seen other people but they are using that to try to hurt each others feelings. Patient does not have a plan. He is not have access to a firearm. She has superficially cut her arms in the past but never had a true suicide attempt. She has never had a psychiatric evaluation or hospitalization. She does not see a therapist. Denies use drugs or alcohol a today. She says that marijuana helps her significantly with her symptoms. <Paulo Tolliver MD - Last Filed: 09/21/24 19:46> Related Data Home medications: Home Medications ?Medication ?Instructions ?Recorded ?Confirmed ?Last Taken ?Type No Home Medications 04/19/23 09/21/24 Unknown History <Paulo Tolliver MD - Last Filed: 09/21/24 19:46> Allergies/adverse reactions: Allergies Allergy/AdvReac Type Severity Reaction Status Date / Time No Known Allergies Allergy Verified 09/21/24 16:42 <Paulo Tolliver MD - Last Filed: 09/21/24 19:46> [facility] Past Medical History Medical History: Medical History Constipation by delayed colonic transit Contraception management Encounter for wellness examination Tympanic membrane disorder <Paulo Tolliver MD - Last Filed: 09/21/24 19:46> Surgical History Surgical History: Surgical History No pertinent past surgical history No significant past surgical history <Paulo Tollivre MD - Last Filed: 09/21/24 19:46> Family History Family History: Family History Mother No significant family history Thyroid disease Grandparent Breast cancer, Onset Age: 60 <Paulo Tolliver MD - Last Filed: 09/21/24 19:46> Social History Social History: Social History Social History: Single Smoking status: Smoker, status unknown Additional smoking assessment comments: Pt has been vaping for 4 years. Alcohol intake: former Substance use: current Substance use type: marijuana Do You Feel Safe in your Home?: Yes Lack of Transportation: No Lack of Food: Never True Current Housing: I Have Housing Concerned About Future Housing: No Difficulty Paying Gas/Electric Bills: No Difficulty Paying for Meds: No Currently Unemployed: No Education: High School Diploma/GED Difficulty w/ Childcare or Family Care: No Living arrangements: with family Occupation/Education: occupation Gender identity (if verbalized by the patient): Female Sexual Orientation (if Verbalized by the Patient): Straight or Heterosexual Spiritual care concerns: No <Paulo Tolliver MD - Last Filed: 09/21/24 19:46> Exam 2 Narrative: APPEARANCE: No apparent distress. Head: atraumatic. EYES: EOMI, NOSE: Atraumatic NECK: Trachea midline RESPIRATORY: No increased rate of breathing. CT be CARDIOVASCULAR: RRR, ABDOMINAL: Non-distended MUSCULOSKELETAl: No obvious deformities NEURO: Alert. Moving 4/4 extremities SKIN:: Warm, dry. Normal color PSYCHIATRIC: Normal affect <Paulo Tolliver MD - Last Filed: 09/21/24 19:46> Course Vital Signs Vital signs: Vital Signs Temperature 98.1 F 09/21/24 16:26 Pulse Rate 78 09/21/24 16:26 Respiratory Rate 16 09/21/24 16:26 Blood Pressure 120/77 09/21/24 16:26 Pulse Oximetry 100 09/21/24 16:26 Oxygen Delivery Room Air 09/21/24 16:26 Temperature 98.1 F 09/21/24 16:26 Pulse Rate 79 09/21/24 18:56 Respiratory Rate 15 09/21/24 18:56 Blood Pressure 104/67 09/21/24 18:56 Pulse Oximetry 100 09/21/24 18:56 Oxygen Delivery Room Air 09/21/24 16:26 <Paulo Tolliver MD - Last Filed: 09/21/24 19:46> Vital Signs Temperature 98.1 F 09/21/24 16:26 Pulse Rate 78 09/21/24 16:26 Respiratory Rate 16 09/21/24 16:26 Blood Pressure 120/77 09/21/24 16:26 Pulse Oximetry 100 09/21/24 16:26 Oxygen Delivery Room Air 09/21/24 16:26 Temperature 98.1 F 09/21/24 16:26 Pulse Rate 79 09/21/24 18:56 Respiratory Rate 15 09/21/24 18:56 Blood Pressure 104/67 09/21/24 18:56 Pulse Oximetry 100 09/21/24 18:56 Oxygen Delivery Room Air 09/21/24 16:26 <Dani Lam MD - Last Filed: 09/21/24 22:08> Medical Decision Making MDM Narrative Medical decision making narrative: -Course: 24-year-old female presenting with anxiety and sadness about her current situation. There is some patient is medically cleared for psychiatric evaluation. signed out to the oncoming physician pending psychiatric evaluation. -DDX includes but is not limited to: Anxiety depression adjustment disorder -Co-morbidities complicating care: ADHD <Paulo Tolliver MD - Last Filed: 09/21/24 19:46> -Course: 24-year-old female presenting with anxiety and sadness about her current situation. There is some patient is medically cleared for psychiatric evaluation. signed out to the oncoming physician pending psychiatric evaluation. -DDX includes but is not limited to: Anxiety depression adjustment disorder -Co-morbidities complicating care: ADHD Christoferbaandressa: Patient was signed out to me pending a central intake evaluation as she has no medically cleared. After evaluating the patient, they do recommend inpatient psychiatric admission, voluntarily. Patient was accepted at [facility] [place] by accepting physician Dr. Jean. <Dani Lam MD - Last Filed: 09/21/24 22:08> Vital Signs Vital Signs: Vital Signs Temperature 98.1 F 09/21/24 16:26 Pulse Rate 78 09/21/24 16:26 Respiratory Rate 16 09/21/24 16:26 Blood Pressure 120/77 09/21/24 16:26 Pulse Oximetry 100 09/21/24 16:26 Oxygen Delivery Room Air 09/21/24 16:26 Temperature 98.1 F 09/21/24 16:26 Pulse Rate 79 09/21/24 18:56 Respiratory Rate 15 09/21/24 18:56 Blood Pressure 104/67 09/21/24 18:56 Pulse Oximetry 100 09/21/24 18:56 Oxygen Delivery Room Air 09/21/24 16:26 <Paulo Tolliver MD - Last Filed: 09/21/24 19:46> Vital Signs Temperature 98.1 F 09/21/24 16:26 Pulse Rate 78 09/21/24 16:26 Respiratory Rate 16 09/21/24 16:26 Blood Pressure 120/77 09/21/24 16:26 Pulse Oximetry 100 09/21/24 16:26 Oxygen Delivery Room Air 09/21/24 16:26 Temperature 98.1 F 09/21/24 16:26 Pulse Rate 79 09/21/24 18:56 Respiratory Rate 15 09/21/24 18:56 Blood Pressure 104/67 09/21/24 18:56 Pulse Oximetry 100 09/21/24 18:56 Oxygen Delivery Room Air 09/21/24 16:26 <Dani Lam MD - Last Filed: 09/21/24 22:08> Lab Data Result diagrams: 09/21/24 17:01 09/21/24 17:01 <Paulo Tolliver MD - Last Filed: 09/21/24 19:46> Labs: Lab Results 09/21/24 09/21/24 09/21/24 Range/Units 17:01 17:03 17:09 WBC 6.4 (4.5-10.0) K/mm3 RBC 4.42 (4.2-5.4) M/mm3 Hgb 11.0 L (12.0-15.0) g/dL Hct 34.6 L (37.0-47.0) % MCV 78.3 L (80-100) fl MCH 24.9 L (26-34) pg MCHC 31.8 L (32-36) g/dl RDW 14.9 H (11.5-14.5) % Plt Count 305 (150-375) k/mm3 MPV 10.3 (7.4-10.4) fl Immature Gran % (Auto) 0.3 (0-0.5) % Neut % (Auto) 64.0 (45.5-73.1) % Lymph % (Auto) 25.9 (18.3-44.2) % [place] % (Auto) 7.5 (2.6-8.5) % Eos % (Auto) 1.4 (0-4.4) % Baso % (Auto) 0.9 (0.2-1.2) % Lymph # (Auto) 1.65 (0.9-3.2) K/mm3 [place] # (Auto) 0.5 (0.1-0.6) K/mm3 Eos # (Auto) 0.1 (0-0.3) K/mm3 Baso # (Auto) 0.1 (0.0-0.1) K/mm3 Abs Immat Gran (auto) 0.02 (0.00-0.031) K/mm3 Absolute Neuts (auto) 4.1 (1.3-6.7) K/mm3 Absolute Nucleated RBC 0.000 (0.0-0.012) K/mm3 Nucleated RBC % 0.0 (0.0-0.2) % Sodium 141 (137-145) mmol/L Potassium 3.8 (3.4-5.0) mmol/L Chloride 106 (98-107) mmol/L Carbon Dioxide 24 (22-30) mmol/L Anion Gap 11 (4-12) mmol/L BUN 13 (7-17) mg/dL Creatinine 0.68 L (0.7-1.0) mg/dL Estim Creat Clear Calc 91 ml/min Estimated GFR > 60 (59 - ) Glucose 81 (65-110) mg/dL Calcium 9.4 (8.4-10.2) mg/dL Total Bilirubin 0.5 (0.2-1.3) mg/dL AST 31 (14-36) U/L ALT 13 (6-35) U/L Alkaline Phosphatase 46 (38-126) U/L Total Protein 7.9 (6.3-8.2) g/dL Albumin 4.8 (3.5-5.1) g/dL TSH (Reflex) 0.493 (0.465-4.68) uIU/mL Urine Color Yellow (Yellow) Urine Appearance Clear (Clear) Urine pH 6.0 (5.0-9.0) Ur Specific [place] 1.031 (1.001-1.035) Urine Protein 1+ H (Negative) mg/dL Urine Glucose (UA) Negative (Negative) mg/dL Urine Ketones 1+ H (Negative) mg/dL Ur Blood (Man) Negative (Negative) Urine Nitrate Negative (Negative) Urine Bilirubin Negative (Negative) Urine Urobilinogen 1.0 (<2.0) mg/dL Add Ur Microanalysis Reviewed Leukocyte Esterase Rfl Negative (Negative) LEAH/UL Urine RBC 0-2 (0-2) /hpf Urine WBC 0-5 (0-3) /hpf Ur Squamous Epith Cells Few (Few) /hpf Urine Bacteria 1+ H /hpf Urine Casts 3-5 POC Urine HCG, Qual Negative (Negative) Salicylates < 1.0 L (2-20) mg/dL Urine Opiates Screen Negative (Negative) Urine Methadone Screen Negative (Negative) Acetaminophen < 10 L (10-30) ug/mL Ur Barbiturates Screen Negative (Negative) Ur Phencyclidine Scrn Negative (Negative) Ur Amphetamine Screen Negative (Negative) U Benzodiazepines Scrn Negative (Negative) Urine Cocaine Screen Negative (Negative) U Cannabinoids Screen Positive A (Negative) Ethyl Alcohol < 10 (<10) mg/dL Influenza A (RT-PCR) Negative (Negative) Influenza B (RT-PCR) Negative (Negative) RSV (RT-PCR) Negative (Negative) SARS-CoV-2 RNA (RT-PCR) Negative (Negative) 09/21/24 Range/Units 17:12 WBC (4.5-10.0) K/mm3 RBC (4.2-5.4) M/mm3 Hgb (12.0-15.0) g/dL Hct (37.0-47.0) % MCV (80-100) fl MCH (26-34) pg MCHC (32-36) g/dl RDW (11.5-14.5) % Plt Count (150-375) k/mm3 MPV (7.4-10.4) fl Immature Gran % (Auto) (0-0.5) % Neut % (Auto) (45.5-73.1) % Lymph % (Auto) (18.3-44.2) % [place] % (Auto) (2.6-8.5) % Eos % (Auto) (0-4.4) % Baso % (Auto) (0.2-1.2) % Lymph # (Auto) (0.9-3.2) K/mm3 [place] # (Auto) (0.1-0.6) K/mm3 Eos # (Auto) (0-0.3) K/mm3 Baso # (Auto) (0.0-0.1) K/mm3 Abs Immat Gran (auto) (0.00-0.031) K/mm3 Absolute Neuts (auto) (1.3-6.7) K/mm3 Absolute Nucleated RBC (0.0-0.012) K/mm3 Nucleated RBC % (0.0-0.2) % Sodium (137-145) mmol/L Potassium (3.4-5.0) mmol/L Chloride (98-107) mmol/L Carbon Dioxide (22-30) mmol/L Anion Gap (4-12) mmol/L BUN (7-17) mg/dL Creatinine (0.7-1.0) mg/dL Estim Creat Clear Calc ml/min Estimated GFR (59 - ) Glucose (65-110) mg/dL Calcium (8.4-10.2) mg/dL Total Bilirubin (0.2-1.3) mg/dL AST (14-36) U/L ALT (6-35) U/L Alkaline Phosphatase (38-126) U/L Total Protein (6.3-8.2) g/dL Albumin (3.5-5.1) g/dL TSH (Reflex) (0.465-4.68) uIU/mL Urine Color (Yellow) Urine Appearance (Clear) Urine pH (5.0-9.0) Ur Specific [place] (1.001-1.035) Urine Protein (Negative) mg/dL Urine Glucose (UA) (Negative) mg/dL Urine Ketones (Negative) mg/dL Ur Blood (Man) (Negative) Urine Nitrate (Negative) Urine Bilirubin (Negative) Urine Urobilinogen (<2.0) mg/dL Add Ur Microanalysis Leukocyte Esterase Rfl (Negative) LEAH/UL Urine RBC (0-2) /hpf Urine WBC (0-3) /hpf Ur Squamous Epith Cells (Few) /hpf Urine Bacteria /hpf Urine Casts POC Urine HCG, Qual Negative (Negative) Salicylates (2-20) mg/dL Urine Opiates Screen (Negative) Urine Methadone Screen (Negative) Acetaminophen (10-30) ug/mL Ur Barbiturates Screen (Negative) Ur Phencyclidine Scrn (Negative) Ur Amphetamine Screen (Negative) U Benzodiazepines Scrn (Negative) Urine Cocaine Screen (Negative) U Cannabinoids Screen (Negative) Ethyl Alcohol (<10) mg/dL Influenza A (RT-PCR) (Negative) Influenza B (RT-PCR) (Negative) RSV (RT-PCR) (Negative) SARS-CoV-2 RNA (RT-PCR) (Negative) <Paulo Tolliver MD - Last Filed: 09/21/24 19:46> Lab Results 09/21/24 09/21/24 09/21/24 Range/Units 17:01 17:03 17:09 WBC 6.4 (4.5-10.0) K/mm3 RBC 4.42 (4.2-5.4) M/mm3 Hgb 11.0 L (12.0-15.0) g/dL Hct 34.6 L (37.0-47.0) % MCV 78.3 L (80-100) fl MCH 24.9 L (26-34) pg MCHC 31.8 L (32-36) g/dl RDW 14.9 H (11.5-14.5) % Plt Count 305 (150-375) k/mm3 MPV 10.3 (7.4-10.4) fl Immature Gran % (Auto) 0.3 (0-0.5) % Neut % (Auto) 64.0 (45.5-73.1) % Lymph % (Auto) 25.9 (18.3-44.2) % [place] % (Auto) 7.5 (2.6-8.5) % Eos % (Auto) 1.4 (0-4.4) % Baso % (Auto) 0.9 (0.2-1.2) % Lymph # (Auto) 1.65 (0.9-3.2) K/mm3 [place] # (Auto) 0.5 (0.1-0.6) K/mm3 Eos # (Auto) 0.1 (0-0.3) K/mm3 Baso # (Auto) 0.1 (0.0-0.1) K/mm3 Abs Immat Gran (auto) 0.02 (0.00-0.031) K/mm3 Absolute Neuts (auto) 4.1 (1.3-6.7) K/mm3 Absolute Nucleated RBC 0.000 (0.0-0.012) K/mm3 Nucleated RBC % 0.0 (0.0-0.2) % Sodium 141 (137-145) mmol/L Potassium 3.8 (3.4-5.0) mmol/L Chloride 106 (98-107) mmol/L Carbon Dioxide 24 (22-30) mmol/L Anion Gap 11 (4-12) mmol/L BUN 13 (7-17) mg/dL Creatinine 0.68 L (0.7-1.0) mg/dL Estim Creat Clear Calc 91 ml/min Estimated GFR > 60 (59 - ) Glucose 81 (65-110) mg/dL Calcium 9.4 (8.4-10.2) mg/dL Total Bilirubin 0.5 (0.2-1.3) mg/dL AST 31 (14-36) U/L ALT 13 (6-35) U/L Alkaline Phosphatase 46 (38-126) U/L Total Protein 7.9 (6.3-8.2) g/dL Albumin 4.8 (3.5-5.1) g/dL TSH (Reflex) 0.493 (0.465-4.68) uIU/mL Urine Color Yellow (Yellow) Urine Appearance Clear (Clear) Urine pH 6.0 (5.0-9.0) Ur Specific [place] 1.031 (1.001-1.035) Urine Protein 1+ H (Negative) mg/dL Urine Glucose (UA) Negative (Negative) mg/dL Urine Ketones 1+ H (Negative) mg/dL Ur Blood (Man) Negative (Negative) Urine Nitrate Negative (Negative) Urine Bilirubin Negative (Negative) Urine Urobilinogen 1.0 (<2.0) mg/dL Add Ur Microanalysis Reviewed Leukocyte Esterase Rfl Negative (Negative) LEAH/UL Urine RBC 0-2 (0-2) /hpf Urine WBC 0-5 (0-3) /hpf Ur Squamous Epith Cells Few (Few) /hpf Urine Bacteria 1+ H /hpf Urine Casts 3-5 POC Urine HCG, Qual Negative (Negative) Salicylates < 1.0 L (2-20) mg/dL Urine Opiates Screen Negative (Negative) Urine Methadone Screen Negative (Negative) Acetaminophen < 10 L (10-30) ug/mL Ur Barbiturates Screen Negative (Negative) Ur Phencyclidine Scrn Negative (Negative) Ur Amphetamine Screen Negative (Negative) U Benzodiazepines Scrn Negative (Negative) Urine Cocaine Screen Negative (Negative) U Cannabinoids Screen Positive A (Negative) Ethyl Alcohol < 10 (<10) mg/dL Influenza A (RT-PCR) Negative (Negative) Influenza B (RT-PCR) Negative (Negative) RSV (RT-PCR) Negative (Negative) SARS-CoV-2 RNA (RT-PCR) Negative (Negative) 09/21/24 Range/Units 17:12 WBC (4.5-10.0) K/mm3 RBC (4.2-5.4) M/mm3 Hgb (12.0-15.0) g/dL Hct (37.0-47.0) % MCV (80-100) fl MCH (26-34) pg MCHC (32-36) g/dl RDW (11.5-14.5) % Plt Count (150-375) k/mm3 MPV (7.4-10.4) fl Immature Gran % (Auto) (0-0.5) % Neut % (Auto) (45.5-73.1) % Lymph % (Auto) (18.3-44.2) % [place] % (Auto) (2.6-8.5) % Eos % (Auto) (0-4.4) % Baso % (Auto) (0.2-1.2) % Lymph # (Auto) (0.9-3.2) K/mm3 [place] # (Auto) (0.1-0.6) K/mm3 Eos # (Auto) (0-0.3) K/mm3 Baso # (Auto) (0.0-0.1) K/mm3 Abs Immat Gran (auto) (0.00-0.031) K/mm3 Absolute Neuts (auto) (1.3-6.7) K/mm3 Absolute Nucleated RBC (0.0-0.012) K/mm3 Nucleated RBC % (0.0-0.2) % Sodium (137-145) mmol/L Potassium (3.4-5.0) mmol/L Chloride (98-107) mmol/L Carbon Dioxide (22-30) mmol/L Anion Gap (4-12) mmol/L BUN (7-17) mg/dL Creatinine (0.7-1.0) mg/dL Estim Creat Clear Calc ml/min Estimated GFR (59 - ) Glucose (65-110) mg/dL Calcium (8.4-10.2) mg/dL Total Bilirubin (0.2-1.3) mg/dL AST (14-36) U/L ALT (6-35) U/L Alkaline Phosphatase (38-126) U/L Total Protein (6.3-8.2) g/dL Albumin (3.5-5.1) g/dL TSH (Reflex) (0.465-4.68) uIU/mL Urine Color (Yellow) Urine Appearance (Clear) Urine pH (5.0-9.0) Ur Specific [place] (1.001-1.035) Urine Protein (Negative) mg/dL Urine Glucose (UA) (Negative) mg/dL Urine Ketones (Negative) mg/dL Ur Blood (Man) (Negative) Urine Nitrate (Negative) Urine Bilirubin (Negative) Urine Urobilinogen (<2.0) mg/dL Add Ur Microanalysis Leukocyte Esterase Rfl (Negative) LEAH/UL Urine RBC (0-2) /hpf Urine WBC (0-3) /hpf Ur Squamous Epith Cells (Few) /hpf Urine Bacteria /hpf Urine Casts POC Urine HCG, Qual Negative (Negative) Salicylates (2-20) mg/dL Urine Opiates Screen (Negative) Urine Methadone Screen (Negative) Acetaminophen (10-30) ug/mL Ur Barbiturates Screen (Negative) Ur Phencyclidine Scrn (Negative) Ur Amphetamine Screen (Negative) U Benzodiazepines Scrn (Negative) Urine Cocaine Screen (Negative) U Cannabinoids Screen (Negative) Ethyl Alcohol (<10) mg/dL Influenza A (RT-PCR) (Negative) Influenza B (RT-PCR) (Negative) RSV (RT-PCR) (Negative) SARS-CoV-2 RNA (RT-PCR) (Negative) <Dani Lam MD - Last Filed: 09/21/24 22:08> Discharge Plan Discharge Clinical Impression: Depression Qualifiers: Depression Type: persistent depressive disorder Qualified Code(s): F34.1 - Dysthymic disorder <Paulo Tolliver MD - Last Filed: 09/21/24 19:46> Patient Disposition: Psychiatric Hosp <Paulo Tolliver MD - Last Filed: 09/21/24 19:46> Condition: Stable <Paulo Tolliver MD - Last Filed: 09/21/24 19:46> Instructions: Depression (ED) <Paulo Tolliver MD - Last Filed: 09/21/24 19:46> Additional Instructions: Please follow-up with the resources provided to the crisis team. Please return if you develop thoughts of harming herself or others. <Paulo Tolliver MD - Last Filed: 09/21/24 19:46> Patient Language: Dominican <Paulo Tolliver MD - Last Filed: 09/21/24 19:46> Prescriptions: No Action No Home Medications <Paulo Tolliver MD - Last Filed: 09/21/24 19:46> Follow-up/Referrals: Nicky Barajas MD [Primary Care Provider] - <Paulo Tolliver MD - Last Filed: 09/21/24 19:46> Time of Disposition: 22:07 <Paulo Tolliver MD - Last Filed: 09/21/24 19:46> 22:07 <Dani Lam MD - Last Filed: 09/21/24 22:08>
--- OUTSIDE RECORDS SUMMARY | 2024-09-21 16:54 | XMS_ITS | Clinical Summary ---
Author Organization [facility] Address [address] [place] [address] Care Team Providers Care Pressure Vessel Inspector Name Role Phone Robyn Díaz MD Unavailable Jackie Fonseca MD Primary Care Provider [phone] Source Comments [facility],non-owned Affiliates and Associated Physician Practices is amultiple site organization consisting of ambulatory clinics and hospital sitesin [place], [place], [place] and [place]. This disclosure is being madepursuant to the Care Everywhere program and may not contain all information available regarding this patient. Last updated 17.[facility] Allergies No known active allergies Medications * [...] Comments Blood Pressure 111/70 04/20/2018 3:07 PM CHIEF ENGINEER Pulse 71 04/20/2018 3:07 PM CHIEF ENGINEER Temperature 36.9 C (98.5 F) 12/07/2018 4:18 [...] 10/03/2021 10/04/2011, 08/04/2006, 08/01/2002, Additional history exists PAP SMEAR 2022 COVID-19 VACCINE () 11/12/2023 DEPRESSION SCREENING 03/13/2024 INFLUENZA VACCINE (#1) 2024 12/07/2018, 2017 ZOSTER VACCINE (1 of 2) 2051 HEPATITIS [...] car Lifestyle On track( 017 1:49 PM CHIEF ENGINEER) No Anna Lora RN Procedures Procedure Name Priority Date/Time Associated Diagnosis Comments CHLAMYDIA + GC AMPLIFIED PROBE Routine 05/05/2017 3:20 PM CHIEF ENGINEER Dysuria from Last 3 Months or Most Recently Relevant to Health Maintenance Results * (ABNORMAL) CHLAMYDIA + GC AMPLIFIED PROBE (05/05/2017 3:20 PM CHIEF ENGINEER) Chlamydia [place] Urine Positive(A) Negative [facility] ACCOUNT BILL Comment:. GC [place] Urine Negative Negative [facility] ACCOUNT BILL Microbiology URINE / Unknown 05/05/2017 3 :20 PM CHIEF ENGINEER 05/05/2017 Narrative Resulting Agency Comment [facility] [address] [id number] Jackie Fonseca MD LAB - MICROBIOLOGY ORDERABLES Final Result [facility] ACCOUNT BILL [id number] [place] [id number] from Last 3 Months or Most Recently Relevant to Health Maintenance Insurance SELF PAY NO INSURANCE Member Subscriber Plan / Payer (Ef fective for All Dates) Name:Hilda Caputo Member ID:Not on file Relation to Subscriber:Not on file Name:HILDA CAPUTO Subscriber ID:Not on file (Home) Address: [address] [place] [address] Payer ID:Not on file Group ID:Not on file Type:Self Pay Address: [facility] [place] [address] Care Teams Pressure Vessel Inspector Relationship Specialty Start Date End Date Robyn Díaz MD PCP - Pediatrics 12/04/08 Jackie Fonseca MD PCP - General Pediatrics 09/03/13
--- OUTSIDE RECORDS SUMMARY | 2024-09-21 16:54 | XMS_ITS | Data Portability ---
Author Organization [facility] Kimberly Address [address] [place] [place] [address] [place] [address] Assessment No assessment recorded. Plan of Treatment Reminders Order Date Submit Date Provider Last Modified By Organization Details Last Modified Time Details Appointments None recorded. Lab culture, urine 2024 025 [facility] (Lab), [address], [place], [address], 5 03:02:06 urinalysis, dipstick [email or web address] [place] [address], [address], [address], [place], [address], 5 18:07:25 unlisted lab - [facility] swab plus, LAVON 2024 025 [facility] (Lab), [address], [place], [address], 5 03:02:05 dhea-sulfat e, serum 2023 024 [facility] (Lab), [address] [place], [address], 4 21:50:56 hormone panel, serum or plasma 2023 024 [facility] (Lab), [address] [place], [address], 4 21:50:58 progesteron e, serum 2023 [facility] (Lab), [address] [place], [address], 4 21:50:57 prolactin, serum 2023 [facility] (Lab), [address] [place], [address], 4 21:50:57 shbg (sex hormone-bin ding globulin), serum 2023 [facility] (Lab), [address] [place], [address], 4 21:50:58 TSH, serum or plasma 2023 [facility] (Lab), [address] , [place], [address], 4 21:50:57 testosteron e free/testos terone total, ratio, serum 2023 [facility] (Lab), [address], [place], [address], 4 21:50:58 HbA1c (hemoglobin A1c), blood 2023 [facility] (Lab), [address], [place], [address], 4 21:50:58 Referral None recorded. Procedures None recorded. Surgeries None recorded. Imaging US, pelvis 2023 [email or web address] [address] 4 Kimberly [facility] [address], [place], [address], 14:27:27 US, transvagina l 2023 [email or web address] 4 [address], [address], [place], [address], 4 14:27:27 Medication Orders estradiol 2 mg tablet 2023 025 [id number], [address] , [place], [place], [id number], 5 17:56:10 Patient TargetsNo targets recorded. Patient InstructionsNo [...] 9-246 > 75 12-15 4 Not Available [facility] (Lab) [address], [place], [address], 02/07/2024 21:50:56 02/02/20 24 02/02/2024 TSH, REFLE X FREE T4 TSH 0.97 uIU/m L 0.30-5 .33 Not Available [facility] (Lab) [address], [place], [address], 02/07/2024 21:50:57 02/02/20 24 02/02/2024 PROLA CTIN prolactin, total 14.20 NG/mL 4.79-2 3.30 This assay was perfo rmed using [employer] ratio n reage nts and test kits. Value s obtai aime with other assay metho ds or kits canno t be used inter barreto eably . Not Available [facility] (Lab) [address], [place], [address], 02/07/2024 21:50:57 02/02/20 24 02/02/2024 PROGE STERO NE progesterone 12.80 NG/mL This assay was perfo rmed using [employer] reage nts and test kits. Value s obtai aime with other assay metho ds or kits canno t be used inter [facility] . Femal e Proge stero ne Range s: Folli cular phase 0.06- 0.89 ng/mL Ovula tion phase 0.12- 12.00 ng/mL Lutea l phase 1.83- 23.90 ng/mL Postm enopa usal <0.05 -0.13 ng/mL Healt hy Pregn ant Women 1st Trime ster 11.0- 44.30 2nd Trime ster 25.40 -83.3 0 3rd Trime ster 58.70 -214. 00 Not Available [facility] (Lab) [address] [place], [address], 02/07/2024 21:50:57 02/02/20 24 02/02/2024 FSH, LH, ESTRA DIOL estradiol 101.0 pg/mL This assay was perfo rmed using [employer] reage nts and test kits. Value s obtai aime with other assay metho ds or kits canno t be used inter [facility] . Femal e Estra diol Range s: Folli cular phase 12.4- 233 pg/mL Ovula tion phase 41.0- 398 pg/mL Lutea l phase 22.3- 341 pg/mL Postm enopa usal <5-13 8 pg/mL Healt hy Pregn ant Women 1st Trime ster 154-3 243 pg/mL 2nd Trime ster 1561- 01419 pg/mL 3rd Trime ster 8525- >3000 0 pg/mL Not Available [facility] (Lab) [address] [place], [address], 02/07/2024 21:50:58 02/02/20 24 02/02/2024 FSH, LH, ESTRA DIOL FSH 4.0 mIU/m L This assay was perfo rmed using [employer] n reage nts and test kits. Value s obtai aime with other assay metho ds or kits canno t be used inter [facility] . Femal es Folli cular : 3.5-1 2.5 mIU/m L Ovula tion: 4.7-2 1.5 mIU/m L Lutea l: 1.7-7 .7 mIU/m L Postm enopa use: 25.8- 134.8 mIU/m L Not Available [facility] (Lab) [address], [place], [address], 02/07/2024 21:50:58 02/02/20 24 02/02/2024 FSH, LH, ESTRA DIOL LH 5.9 mIU/m L This assay was perfo rmed using [employer] reage nts and test kits. Value s obtai aime with other assay metho ds or kits canno t be used inter [facility] . Femal es Mid-F ollic ular: 2.4-1 2.6 mIU/m L Mid-C ycle: 14.0- 95.6 mIU/m L Mid-L uteal : 1.0-1 1.4 mIU/m L Postm enopa use: 7.7-5 8.5 mIU/m L Not Available [facility] (Lab) [address], [place], [address], 02/07/2024 21:50:58 02/02/20 24 02/02/2024 HUMAN SEX HORMO NE VIVEK NG GLOBU JOÃO sex hormone binding globulin 70.3 nmole s/L 18.2-1 35.5 Not Available [facility] (Lab) [address] [place], [address], 02/07/2024 21:50:58 02/02/20 24 02/02/2024 HEMOG LOBIN A1C hemoglobin A1C 5.1 % 0-5.6 The Ameri can Diabe artis Assoc iatio n recom mends that a prima ry goal of myra forbes be a HBA1C of < 7% and that physi cians shoul d reeva luate the treat ment regim en in patie nts with HBA1C value s consi stent ly > 8%. <5.7% Alethea l 5.7 - 6.4% Incre ased risk for diabe artis >=6.5 % Diagn ostic of diabe artis <7.0% Goal of thera py >8.0% Actio danie reynolds sted Not Available [facility] (Lab) [address], [place], [address], 02/07/2024 21:50:58 02/02/20 24 02/02/2024 TESTO STERO NE, FREE( DIALY SIS) AND TOTAL (LC/M S/MS) testosterone , total 17 NG/dL 2-45 For addit ional infor hermila seymour e refer to http: //[facility] haile [place].que stdia gnost ics.c om/fa q/ Total Testo stero neLCM SMSFA Q165 (This link is being provi ded for infor gary kinsey/ educa lupe l purpo ses only. ) This test was devel oped and its murali tical perfo rmanc e salvador cteri stics have been deter mined by Cynny ostic [employer] Rajinder ls [facility], [place]. It has not been clear ed or appro cherry by the U.S. Food and Drug Admin istra tion. This assay has been valid ated pursu ant to the CLIA regul ation s and is used for clini sam purpo ses. Not Available [facility] (Lab) [address], [place], [address], 02/07/2024 21:50:58 02/02/20 24 02/02/2024 TESTO STERO NE, FREE( DIALY SIS) AND TOTAL (LC/M S/MS) testosterone , free 1.6 pg/mL 0.1-6. 4 This test was devel oped and its murali tical perfo rmanc e salvador cteri stics have been deter mined by Cynny ostic s Rajinder ls [employer] [facility] [place], [place]. It has not been clear ed or appro cherry by the U.S. Food and Drug Admin istra tion. This assay has been valid ated pursu ant to the CLIA regul ation s and is used for clini sam purpo ses. Perfo rming Organ izati on Infor matio n: Site ID: [id number] Name: Francoise ramires Addre ss: [id number] [place], [place] Direc tor: Trell Brown MD PhD Not Available [facility] (Lab) [address], [place], [address], 02/07/2024 21:50:58 04/02/19 25 04/02/2024 WOMEN 'S HEALT H SWAB PLUS, LAVON bacterial vaginosis (bv), tma Positi ve negati ve abnormal Not Available [facility] (Lab) [address] [place], [address], 04/04/2024 03:02:05 04/02/19 25 04/02/2024 WOMEN 'S HEALT H SWAB PLUS, LAVON isha species, tma Positi ve negati ve abnormal Not Available [facility] (Lab) [address] [place], [address], 04/04/2024 03:02:05 04/02/19 25 04/02/2024 WOMEN 'S HEALT H SWAB PLUS, LAVON isha glabrata, tma Negati ve negati ve Not Available [facility] (Lab) [address] [place], [address], 04/04/2024 03:02:05 04/02/19 25 04/02/2024 WOMEN 'S HEALT H SWAB PLUS, LAVON trichomonas vaginalis, tma Negati ve negati ve Not Available [facility] (Lab) [address] [place], [address], 04/04/2024 03:02:05 04/02/19 25 04/02/2024 WOMEN 'S HEALT H SWAB PLUS, LAVON chlamydia trachomatis, PCR Negati ve negati ve Not Available [facility] (Lab) [address] [place], [address], 04/04/2024 03:02:05 04/02/19 25 04/02/2024 WOMEN 'S [...] da glabr anselmo, Trich omona s vagin shirin, Chlam ydia trach omati s, and Neiss eria gonor rhoea e are also inclu ded in this panel . Not Available [facility] (Lab) [address], [place], [address], 04/04/2024 03:02:05 04/02/19 25 04/02/2024 CULTU RE: URINE result report SEE RESULT S BELOW Test: Cultu re: Urine Speci men Sourc e: Urine - Clean Catch Speci men Type: Urine Speci men Date: 2024 1713 Resul t Date: 2024 0158 Resul t Statu s: Final resul t Abnor mal: No Resul ting Lab: [facility] [address] [facility] [address] Tel: CULTU RE ----- ----- ----- --- Cultu re resul t (>=3 organ isms prese nt) indic ates possi ble conta minat ion. Repea t cultu re if sympt oms indic ate. Not Available [facility] (Lab) [address], [place], [address], 04/04/2024 03:02:06 04/02/19 25 04/02/2024 urina lysis , dipst ick Leukocytes - Not Available [facility] may [address], [place], [address], 04/02/2024 18:04:55 04/02/19 25 04/02/2024 urina lysis , dipst ick Nitrite - Not Available Kimberly [address], [place], [address], 04/02/2024 18:04:55 04/02/19 25 04/02/2024 urina lysis , dipst ick Urobilinogen - Not Available [facility] ayleen [address], [place], [address], 04/02/2024 18:04:55 04/02/19 25 04/02/2024 urina lysis , dipst ick Protein trace Not Available Kimberly [address], [place], [address], 04/02/2024 18:04:55 04/02/19 25 04/02/2024 urina lysis , dipst ick pH 5 Not Available Kimberly [address], [place], [address], 04/02/2024 18:04:55 04/02/19 25 04/02/2024 urina lysis , dipst ick Specific [place] 1.020 Not Available [facility] [address], [place], [address], 04/02/2024 18:04:55 04/02/19 25 04/02/2024 urina lysis , dipst ick Ketone - Not Available Kimberly [address], [place], [address], 04/02/2024 18:04:55 04/02/19 25 04/02/2024 urina lysis , dipst ick Bilirubin - Not Available [facility] [address], [place], [address], 04/02/2024 18:04:55 04/02/19 25 04/02/2024 urina lysis , dipst ick Glucose - Not Available Kimberly [address], [place], [address], 04/02/2024 18:04:55 04/02/19 25 04/02/2024 urina lysis , dipst ick Appearance cloudy Not Available [facility] [address], [place], [address], 04/02/2024 18:04:55 04/02/19 25 04/02/2024 urina lysis , dipst ick Color yellow Not Available Kimberly [address], [place], [address], 04/02/2024 18:04:55 12/15/19 24 12/15/2023 US, pelvi s No observ ation record ed. [email or web address] Kimberly [address], [place], [address], 12/15/2023 12:34:22 12/15/1912/15/2023 US, trans vagin al No observ ation record ed. [email or web address] Kimberly [address], [place], [address], 12/15/2023 12:34:31 12/15/19 24 12/15/2023 US, pelvi s No observ ation record ed. [email or web address] [address], [place], [address], 12/17/2023 23:27:48 05/21/1905/20/2024 US, obste tric, 1st trime ster No observ ation record ed. [address], [place], [address], 06/04/2024 13:56:04 Result Notes None recorded. Problems Name Problem SNOMED Code Status Onset Date Resolution Date Notes Provider Name and Address Organization Details Recorded Time Syphilis test finding 329936157 Completed 201707/31/2020 Encntr screen for infection s w sexl mode of transmiss ;Recorded Elsewhere : No Locati on: [facility] So urce: EHR Chron ic: N Practic e ID: 0001 Bill able Time: 03:00:00 PM [facility] 11:43:33 Clinical finding Completed 201507/31/2020 Presence of (intraute rine) contracep tive device;Re corded Elsewhere : No Locati on: [facility] So urce: EHR Chron ic: N Practic e ID: 0001 Bill able Time: 02:30:00 PM [facility] 11:41:[address] Concept Completed 201507/31/2020 Encntr for routine child health exam w/o abnormal findings; Recorded Elsewhere : No Locati on: [facility] So urce: EHR Chron ic: N Practic e ID: 0001 Bill able Time: 03:00:00 PM [facility] 11:43:25 Evaluati on finding Completed 201707/31/2020 Hematuria , unspecifi ed;Record ed Elsewhere : No Locati on: [facility] So urce: EHR Chron ic: N Practic e ID: 0001 Bill able Time: 03:00:00 PM [facility] 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 1 11:43:27 Insertio n of intraute rine contrace ptive device Completed 201503/25/2021 Encounter for insertion of intrauter ine contracep tive device;Re corded Elsewhere : No Locati on: [facility] So urce: EHR Chron ic: N Practic e ID: 0001 Bill able Time: 02:30:00 PM Charlotte Santos [facility] 2 13:13:59 Infectio n screenin g Completed 201707/31/2020 Encounter for screening for oth infec/par astc diseases; Recorded Elsewhere : No Locati on: [facility] So urce: EHR Chron ic: N Practic e ID: 0001 Bill able Time: 03:00:00 PM Charlotte Santos [facility] 1 11:43:16 Vaginola bial hernia Completed 201707/31/2020 Other specified noninflam matory disorders of vagina;Re corded Elsewhere : No Locati on: [facility] So urce: EHR Chron ic: N Practic e ID: 0001 Bill able Time: 03:00:00 PM Charlotte Santos [facility] 1 11:43:34 Pregnanc y test negative [id number] Completed 201507/31/2020 Encounter for test, result negative; Recorded Elsewhere : No Locati on: [facility] So urce: EHR Chron ic: N Practic e ID: 0001 Bill able Time: 03:00:00 PM Charlotte Santos [facility] 1 11:43:21 Surveill ance of contrace ption Completed 201507/31/2020 Encounter for surveilla nce of contracep tives, unspecifi ed;Record ed Elsewhere : No Locati on: [facility] So urce: EHR Chron ic: N Practic e ID: 0001 Bill able Time: 03:00:00 PM [facility] 1 11:43:29 Chlamydi al vulvovag initis [id number] Completed 201803/25/2021 Chlamydia l vulvovagi nitis;Rec orded Elsewhere : No Locati on: [facility] So urce: EHR Chron ic: N Practic e ID: 0001 Bill able Time: 02:30:00 PM [facility] 2 13:13:54 Blood leukocyt e number above referenc e range [id number] Completed 201707/31/2020 Elevated white blood cell count, unspecifi ed;Record ed Elsewhere : No Locati on: [facility] So urce: EHR Chron ic: N Practic e ID: 0001 Bill able Time: 03:00:00 PM [facility] [address] 11:41:[address] Concept Completed 201807/31/2020 Encntr for general adult medical exam w/o abnormal findings; Recorded Elsewhere : No Locati on: [facility] So urce: EHR Chron ic: N Practic e ID: 0001 Bill able Time: 02:30:00 PM [facility] 1 11:43:23 Contrace ptive sheath status 083158997 Completed 201507/31/2020 IUD follow up;Record ed Elsewhere : No Locati on: [facility] So urce: EHR Chron ic: N Practic e ID: 0001 Bill able Time: 04:00:00 PM [facility] 1 11:41:36 Problem Notes None recorded. Procedures Surgical History Date Name Laterality Status Provider Name and Address Organization Details Recorded Time 05/03/19 24 Date of Last Pap Smear completed Nakia Meek [facility] 06/12/2023 16:09:03 03/14/19 23 extraction of wisdom tooth completed DEMI Gold [facility] 05/20/2024 16:14:00 04/08/19 22 IUD Insertion cancelled Charlotte Santos [facility] 04/07/2021 19:29:28 10/14/19 21 IUD Removal completed Joselyn Singh, [facility]- [address], [place], [address], [facility] 10/13/2020 13:39:21 Imaging Results None recorded. Procedure Notes None recorded. Medical Equipment None [...] route every 12 hours 11/15 completed Prescrib marley Fishman e: No Locat ion: Lizette liu [facility] Khoi odify By: ibrahima mcmahan DateTime : 07/27/19 [...] route for 90 days. 03/25 completed Lot#: [id number], Exp DEC 31 Not Available Not Available Not Available Nuvessa 1.3 % (65 mg/5 gram) vaginal gel insert 1 applicat orful by vaginal route once at bedtime 12/19 completed Prescrib ed Elsewher e: No Locat ion: [facility] M odify By: savita E ncounter DateTime : 11/20/19 11:43:12 AM Not Available [...] Body mass index (BMI) Body weight Systolic And Diastolic Provider Name and Address Organization Details Last Updated DateTime 04/02/2024 160.02 cm 20.9 kg/m2 54212.18 g 105/69 mm[Hg] KAREL GLORIA [facility] 04/02/2024 17:45:32 Date Recorded Body height Body mass index (BMI) Body weight Systolic And Diastolic Provider Name and Address Organization Details Last Updated DateTime 05/20/2024 160.02 cm 20 kg/m2 41163.94 g 107/66 mm[Hg] DEMI Gold [facility] 05/20/2024 16:12:48 Date Recorded Body height Body mass index (BMI) Body weight Systolic And Diastolic Provider Name and Address Organization Details Last Updated DateTime 02/02/2024 160.02 cm 21.8 kg/m2 89048.86 g 96/63 mm[Hg] Yajaira Mcclendonen [facility] 02/02/2024 10:11:40 Social History Question Answer Notes LastModified by Organizat ion Details LastModified Time Tobacco Smoking Status Never Smoker Charlotte Santos mai, [facility] 07/31/2020 11:46:00 Are You Blind Or Do You Have [...] IV Drugs? No Information not available 07/31/2020 Do You Have Difficulty Walking Or Climbing Stairs? No Information not available 09/21/2021 Sex: Unknown Functional Status Question Answer Note LastModified by Organizat ion Details LastModified Time Do you use any illicit or recreational drugs? Yes Information not available 07/31/2020 What is your level of alcohol consumption? Occasional [email or web address] Information not available 05/03/2023 Are you able to walk? YESWOREST Information not available 07/31/2020 Are you able to care for yourself? Yes Information n ot available 09/21/2021 Do you have difficulty dressing or bathing? No Information not available 09/21/2021 What is your exercise level? Occasional Information not available 07/31/2020 Mental Status Question Answer Note LastModified by Organization D etails LastModified Time Do you feel stressed (tense, restless, nervous, or anxious, or unable to sleep at night)? [id number] Information not available 07/31/2020 Family History Relationship Description Onset Age of this Age Resolved Age Notes LastModified by Organization Details LastModified Time Mother Disorder of thyroid gland Not available 2020 11:45:06 Maternal Grandmother Malignant tumor of breast Not available 2020 11:45:13 Paternal Aunt Diabetes mellitus Not available 2020 11:45:18 Medical History Condition Response Allergies (Food, seasonal, environmental ) N Other Y Breast Cancer N Drug/Latex Allergies/Reactions N Blood Transfusion N Dermatologic Disorders N Lung Disease N Defects or Inherited Disease N Breast Problem N Gestational Diabetes N Hematologic disorders N Anesthesia Complications N History of STI Y Deep Vein Thrombosis N Polycystic ovary syndrome N Anxiety Disorder N Autoimmune disease N Arthritis N Infertility N Polyps N Acid Reflux (GERD) N History of abnormal pap N Cancer N Stroke N Varicosities N Neurologic/Epilepsy N Endometriosis N High Cholesterol N Headaches N Fibromyalgia N Kidney Disease N Heart Problems N Kidney or Bladder Problems N Thyroid Problems N GI Problems N Eating Disorder [...] SNOMED-CT Code Diagnosis ICD10 Code Diagnosis Note [id number] Nain Cid MD Kimberly [address] [address] 09/26/2019 12:05:48 09/26/2019 13:08:03 Bacterial vaginosis [id number] N76.0 Venereal d isease screening 790653732 Z11.3 This patient is a 19-year-ol d [...] the patient. She was treated with MetroGel. [id number] JOSUÉ [facility] [address] [address] 07/31/2020 11:23:26 07/31/2020 12:57:40 Contraception care management 207443016 Z30.9 Today, we agreed to trial of [...] this patient s visit, including available hand regrader upon arrive, temperatur e check and being [...] read and signed. Pt verbalized understand ing. [id number] [facility] [address],[place] [address] 10/13/2020 13:12:51 10/13/2020 13:40:55 Removal of intrauterine device 75473030 Z30.432 She states the symptoms are of [...] BC at this time except condoms. Vaginitis 68429690 N76.0 Z11.3 Z11.8 Yeast infection found on examDifluc an sent with 1 RF. [id number] [facility]elyn [facility] [address] [address] 03/25/2021 14:40:25 03/25/2021 15:34:34 Contraception care management 892921242 Z30.9 Today we discussed Nexplanon, Depo, & [...] this patient s visit, including available hand regrader upon arrive, temperatur e check and being asked a series of screening questions. All staff wore face coverings during this encounter, as well as provided additional cleaning and sanitizing of all surfaces, including countertop s, pens, chairs, door handles, light switches, etc, prior to and following the patient s visit. test negative 723853284 Z32.02 Will return in 2wks for second UPT.Aware to abstain x 2wks as well. [id number] JOSUÉ Ward [facility] [address],[place] [address] 09/21/2021 16:55:51 09/22/2021 14:59:36 Contraception care management 997767310 Z30.9 All control options discussed in-depthSh e [...] counseling and review of plan of care. [id number] JOSUÉ Ward [facility] [address],[place] [address] 05/03/2023 14:02:35 05/03/2023 14:40:43 Abnormal uterine bleeding [id number] 9100 N93.9 Primary pap collectedg c/ct/trich testing added to paplabs orderedUPT (-)pelvic u/s orderedwil l return for f/u to discuss results/ma nagment options Time spent in visit is a total of 30 mins with at least 50% of visit consisting of counseling and review of plan of care. Irregular periods 054067 07 N92.6 Screening for malignant neoplasm of cervix 208656328 Z12.4 [id number] Nain Cid MD [facility] [address],[place] [address] 05/11/2023 14:29:06 05/11/2023 15:54:18 Abnormal uterine bleeding 5147665140 9100 N93.9 [id number] JOSUÉ Ward [facility] [address] [address] 06/13/2023 15:00:07 06/13/2023 15:47:57 Abnormal uterine bleeding 5447537612 9100 N93.9 Contracept ion care management [id number] Z30.9 gc/ct/tric h testing sentBC options reviewedop [...] months recommende d Venereal d isease screening [id number] Z11.3 [id number] Nain Cid MD Kimberly [address] [address] 10/21/2023 11:53:47 10/21/2023 13:01:41 Abnormal uterine bleeding [id number] 9100 N93.9 This patient is a 23-year-ol [...] will have pelvic ultrasound around that time. [id number] Nain Cid MD Kimberly [address],[place] [address] 12/15/2023 11:02:40 12/15/2023 11:41:19 Abnormal uterine bleeding [id number] 9100 N93.9 This patient is a 23-year-ol [...] will have pelvic ultrasound around that time. [id number] NIKHIL PRAJAPATI MD Kimberly [address] [address] 02/02/2024 10:03:02 02/02/2024 11:11:38 Abnormal uterine bleeding [id number] 9100 N93.9 - hx of irregular spotting [...] follow up on bleeding after labs result [id number] Nain Cid MD Kimberly [address],[place] [address] 04/02/2024 17:30:43 04/02/2024 18:14:22 Venereal disease screening [id number] Z11.3 Pt requested STI testing.Di scussed the various types of STDs, related symptoms and the potential consequenc es (including effects on fertility) of STD infections . Reviewed ways to limit exposure and prevention techniques . Vaginal discharge [id number] 006 N89.8 Will r/o yeast/BV/t rich infection with vaginitis panel.No hematuria noted on urine dipstick. Irregular periods [id number] 07 N92.6 Discussed that patient should f/u if irregular bleeding/s potting continues despite ruling out infectious cause.Triston mmended repeat pelvic u/s if this occurs. Discussed hormonal BC methods, pt may be interested in Twirla patch, but would like to continue to monitor her periods for now. [id number] NIKHIL PRAJAPATI MD Kimberly [address],[place] [address] 05/20/2024 15:12:36 05/20/2024 15:55:08 [id number] NIKHIL PRAJAPATI MD Kimberly [address],[place] [address] 05/20/2024 15:16:49 05/22/2024 00:07:44 test positive [id number] Z32.01 1. Exam today within normal limits.2. [...] Recorded Advance Directives Directive None Recorded Payers Insurance Date Sequence Insurance Name Policy Number Policy Barr Covered Member ID Barr Member ID Guarantor Name 05/26/2024 1 [facility] - DOS PRIOR TO 2024 (PPO) Hilda Caputo [id number] Hilda Caputo 07/22/2024 1 [facility] - [facility] 03/13/2024 AND AFTER [id number] Jocelyne Zheng [id number] Hilda Caputo 04/03/2024 2 [facility] (PPO) Jocelyne Zheng [id number] Hilda Caputo 05/26/2024 2 [facility] [id number] Hilda Caputo [id number] Hilda Caputo 05/22/2024 2 [facility] (PPO) [id number] Hilda Caputo [id number] Hilda Caputo 05/10/2024 1 [facility] - DOS PRIOR TO 2024 (PPO) Jocelyne Zheng [id number] Hilda Caputo Notes Date Note Type Note [...] US. NIKHIL PRAJAPATI MD [address], [place], [address], [facility] 02/02/2024 11:00:31 04/02/2024 text/html Patient here [...] itching. MARGO ALAS NP [address], [place], [address], [facility] 04/02/2024 18:09:54 05/20/2024 text/html Presents to the office today to confirm . Patient denies any problems up to this point with her . Patient denies cramping or vaginal bleeding. Minimal nausea No PMH/PSH. Denies tobacco/EtOH/illicit s. NIKHIL PRAJAPATI MD [address], [place], [address], [facility] 05/21/2024 18:49:42 OBGyn Episode Ob Episode Information Episode Created Date Number of Fetuses Patient Bloodtype Patient rh Status Prepregnancy Weight lbs Domestic Partner Domestic Partner Phone Father Name Master Control Operator Status 05/03/19 24 1 CLOSED Fetus Data First Name Last Name Admitted to NICU Weight (g) Sex Living Outcome Pediatric Complications Fetus ID Race Codes Race Delivery Type [id number] Mike Calculation Initial Mike Date Initial Exam [...]
[2024-09-21 17:05] LABS: BEDSIDEPREGUCG Negative (Negative)
[2024-09-21 17:13] LABS: BEDSIDEPREGUCG Negative (Negative)
[2024-09-21 17:16] LABS: Hematocrit 34.6 % (37.0-47.0); Hemoglobin 11.0 g/dL (12.0-15.0); Immature Granulocyte Percent A 0.3 % (0-0.5); Lymphocytes Absolute Auto 1.65 K/mm3 (0.9-3.2); Mean Corpuscular HGB Conc 31.8 g/dl (32-36); Mean Corpuscular Hemoglobin 24.9 pg (26-34); Mean Corpuscular Volume 78.3 fl (80-100); Nucleated Red Blood Cells Absolute Auto 0.000 K/mm3 (0.0-0.012); Nucleated Red Blood Cells Perc 0.0 % (0.0-0.2); Platelet Count Result 305 k/mm3 (150-375); Red Blood Count 4.42 M/mm3 (4.2-5.4); White Blood Count 6.4 K/mm3 (4.5-10.0)
[2024-09-21 17:26] LABS: Acetaminophen < 10 ug/mL (10-30); Salicylate < 1.0 mg/dL (2-20)
[2024-09-21 17:28] LABS: Alanine Aminotransferase 13 U/L (6-35); Albumin Level 4.8 g/dL (3.5-5.1); Alkaline Phosphatase 46 U/L (38-126); Anion Gap 11 mmol/L (4-12); Aspartate Amino Transferase 31 U/L (14-36); Bilirubin,Total 0.5 mg/dL (0.2-1.3); Blood Urea Nitrogen 13 mg/dL (7-17); Calcium 9.4 mg/dL (8.4-10.2); Carbon Dioxide 24 mmol/L (22-30); Chloride 106 mmol/L (98-107); Estimated CRCL calculation 91 ml/min; Estimated Glomerular Filt Rate > 60; Glucose 81 mg/dL (65-110); Potassium 3.8 mmol/L (3.4-5.0); Sodium 141 mmol/L (137-145); Total Protein 7.9 g/dL (6.3-8.2)
[2024-09-21 17:30] LABS: Cannabinoid Screen Urine Positive (Negative)
[2024-09-21 17:39] LABS: Add Urine Microscopic? YES; Appearance Urine Clear (Clear); Glucose Urine UA Negative (Negative); Leukocyte Esterase Ur Negative LEU/UL (Negative); Need Manual Microscopic Reviewed; Nitrate Urine Negative (Negative); Specific Grav Ur 1.031 (1.001-1.035)
[2024-09-21 17:51] LABS: Influenza A QL RT-PCR Negative (Negative); Influenza B QL RT-PCR Negative (Negative); RSV RNA, RT-PCR Negative (Negative); SARS-CoV-2 RNA PCR Negative (Negative)
[2024-09-21 18:04] LABS: Thyroid Stimulating Hormone Reflex 0.493 uIU/mL (0.465-4.68)
[2024-09-21 18:56] VITALS: BP 104/67; PULSE 79; RESP 15; O2SAT 100
--- NOTE | 2024-09-21 19:33 | PC.NURSE ---
Crisis arrival at 1932
[2024-09-21 23:15] VITALS: BP 104/67; PULSE 79; RESP 15; O2SAT 100
== END 2024-09-21 23:20 ==
PROVIDERS: Emergency Medicine; Emergency Provider Emergency Medicine; PCP Family Medicine
DX: F34.1 Dysthymic disorder (principal); Z11.52 Encounter for screening for COVID-19; F90.9 Attention-deficit hyperactivity disorder, unspecified type; F17.290 Nicotine dependence, other tobacco product, uncomplicated
CPT/HCPCS: 36415; 80053; 80143; 80179; 80307; 81001; 81025; 82077; 84443; 85025; 87637; 99284; 99285